=== PATIENT | female | born 1950 | race African-American/Black ===

== ENCOUNTER 2018-05-18 20:34 | Emergency (ER) | payer MEDICARE ==
[~2018-05-18] VITALS: Ht 157.5 cm; Wt 91.7 kg
--- OUTSIDE RECORDS SUMMARY | 2018-05-18 20:38 | XMS REPORT | Continuity of Care Document ---
Author Author [facility] Interface Address Unknown Phone Unavailable Problems Problem Status Onset Date Classification Date Reported Comments Source Pain in left lower leg 07/07/2017 10/06/2017 [facility] M25.472 Active 06/30/2017 [facility] CHEST PAIN Active 03/25/2017 [facility] BREAST CANCER Active 09/26/2016 [facility] Discharge Diagnosis: Fall on same level, unspecified, initial encounter 06/27/2016 06/30/2016 [facility] HEAD INJURY W/LOC Active 06/26/2016 [facility] M79.62=PAIN IN LEFT LOWER LEG Active 09/13/2015 [facility] DX: R92.8=OTHER ABNORMAL AND INCONCLUSIV Active 08/12/2015 [facility] V65.3, Z71.3 Active 08/06/2015 [facility] Discharge Diagnosis: Chest pain 05/12/2014 05/14/2014 [facility] RIGHT BREAST CANCER Active 03/29/2000 [facility] PVC Active Problem 07/01/2017 [facility] Melasma Active Problem 07/01/2017 [facility] Cervical nerve root impingement Active Problem 07/01/2017 [facility] History of DVT Active Problem 12/19/2016 [facility] History of breast cancer Active Problem 07/01/2017 [facility] Reactive depression Active Problem 07/01/2017 [facility] Lumbago with sciatica, right side Active Problem 07/01/2017 [facility] Colon polyp Active Problem 07/01/2017 [facility] BMI 37.0-37.9, adult Active Problem 07/01/2017 [facility] Lumbago with sciatica, left side Active Problem 07/01/2017 [facility] Hx of laparoscopic gastric banding Active Problem 07/01/2017 [facility] Vitamin D deficiency Active Problem 07/01/2017 [facility] Cervical nerve root impingement Active Problem 12/19/2016 [facility] Esophagitis Active Problem 07/01/2017 [facility] HTN Active Problem 07/01/2017 [facility] Breast pain, right Active Diagnosis 06/30/2016 [facility] HTN Active Problem 04/29/2014 [facility] Vitamin d deficiency Active Problem 08/02/2015 [facility] Skin tag Active Diagnosis 04/21/2014 [facility] Left shoulder pain Active Diagnosis 04/21/2014 [facility] Discoloration of skin of face Active Diagnosis 04/21/2014 [facility] HTN , benign Active Problem 08/02/2015 [facility] Hypothyroid Active Problem 03/18/2016 [facility] Left ankle pain Active Diagnosis 09/28/2013 [facility] Left ankle swelling Active Diagnosis 09/28/2013 [facility] Stye Active Diagnosis 09/28/2013 [facility] Anxiety Active Problem 07/01/2017 [facility] Left leg pain Active Diagnosis 07/01/2017 [facility] Varicose veins of both lower extremities Active Diagnosis 07/01/2017 [facility] Left ankle swelling Active Diagnosis 07/01/2017 [facility] Dark urine Active Diagnosis 06/17/2015 [facility] Encounter for screening mammogram for malignant neoplasm of breast Active Diagnosis 06/17/2015 [facility] Special screening for malignant neoplasms, colon Active Diagnosis 06/17/2015 [facility] Shoulder pain, left Active Diagnosis 04/29/2014 [facility] Chest wall discomfort Active Diagnosis 04/29/2014 [facility] Neck pain on left side Active Diagnosis 04/29/2014 [facility] Discoloration of skin Active Diagnosis 04/29/2014 [facility] Breast cancer Active Problem 03/18/2016 [facility] Breast mass Active Diagnosis 09/07/2015 [facility] Abnormal finding on mammography Active Diagnosis 08/16/2015 [facility] Bacteria in urine Active Diagnosis 08/16/2015 [facility] Menopause Active Diagnosis 05/05/2016 [facility] URI with cough and congestion Active Diagnosis 05/05/2016 [facility] Lumbar canal stenosis Active Diagnosis 05/21/2016 [facility] Screening for malignant neoplasm of the rectum Active Diagnosis 05/21/2016 [facility] Routine general medical examination at a health care facility Active Diagnosis 05/21/2016 [facility] Pain of left calf Active Diagnosis 09/17/2015 [facility] Hypertension Resolved Problem 10/06/2017 [facility] Breast cancer Resolved Problem 10/06/2017 [facility] Obesity Active Problem 10/06/2017 [facility] DIETARY COUNSELING AND SURVEILLANCE Active [facility] OTH ABN AND INCONCLUSIVE FINDINGS ON DX Active [facility] MALIG NEOPLM OF LOWER-INNER QUADRANT OF Active [facility] EFFUSION, LEFT ANKLE Active [facility] PAIN IN LEFT LOWER LEG Active [facility] Medications Medication Details Route Status Patient Instructions Ordering Provider Order Date Source Ibuprofen 1 tablet with food or milk as needed Orally Active 800 MG Orally Q8 PRN Hu 06/30/2017 [facility] Saline Flush 0.9% 10 mL, Route: IVP, Drug Form: INJ, Dosing Weight 97.273, kg, PRN, PRN Line Flush, Start date: 03/25/17 16:35:00 LIGHT BULB TESTER, Duration: 30 day, Stop date: 04/24/17 16:34:00 CSTNotes: (Same as: BD Posiflush) No Longer Active 03/25/2017 [facility] Motrin 600 mg oral tablet 600 mg=1 tab, PO, Q6H, PRN Pain, take with food, # 30 tab, 0 Refill(s) Active 06/27/2016 [facility] Acetaminophen 325 MG / Hydrocodone Bitartrate 5 MG Oral Tablet [[place] 5/325] 1 tab, Route: PO, Drug Form: TAB, Dosing Weight 90.909, kg, ONCE, STAT, Start date: 06/27/16 0:55:00 CDT, Stop date: 06/27/16 0:55:00 CDTNotes: (Same as: [place] 325/5) Do not exceed 4gm/day of acetaminophen. Inactive 06/27/2016 [facility] Saline Flush 0.9% 10 mL, Route: IVP, Drug Form: INJ, Dosing Weight 90.909, kg, PRN, PRN Line Flush, Start date: 06/26/16 21:30:00 CDT, Duration: 30 day, Stop date: 07/26/16 21:29:00 CDTNotes: (Same as: BD Posiflush) No Longer Active 06/27/2016 [facility] Escitalopram Oxalate 1 tablet Orally Active 10 MG Orally Once a day [place] 06/25/2016 [facility] Lidocaine 1 application to lower back Externally Active 5 % Externally up to Three times a day [place] 05/13/2016 [facility] Lidocaine 1 application to lower back Externally Active 5 % Externally up to Three times a day [place] 05/13/2016 [facility] Ceftin 1 tablet Orally Active 250 MG Orally Twice a day [place] 04/30/2016 [facility] Tessalon Perles 1 capsule as needed Orally Active 100 MG Orally Three times a day [place] 04/30/2016 [facility] Cipro 1 tablet Orally Active 250 MG Orally every 12 hrs [place] 06/07/2015 [facility] Synthroid 1 tablet Orally No Longer Active 25 MCG Orally Once a day (MUST SEE DOCTOR BEFORE NEXT REFILL) [place] 02/05/2015 [facility] Synthroid 1 tablet Orally Active 25 MCG Orally Once a day [place] 05/28/2014 [facility] Dilaudid 1 mg, Route: IVP, ONCE, Dosing Weight 92.727, kg, Priority: STAT, Start date: 05/12/14 22:09:00, Stop date: 05/12/14 22:09:00 Inactive 05/13/2014 [facility] Ondansetron 4 mg, Route: IVP, Drug form: INJ, ONCE, Dosing Weight 92.727, kg, Priority: STAT, Start date: 05/12/14 19:36:00, Stop date: 05/12/14 19:36:00 Inactive 05/13/2014 [facility] Morphine 4 mg, Route: IVP, ONCE, Dosing Weight 92.727, kg, Priority: STAT, Start date: 05/12/14 19:36:00, Stop date: 05/12/14 19:36:00 Inactive 05/13/2014 [facility] Codeine Phosphate 2 MG/ML / Guaifenesin 40 MG/ML Oral Solution 10 ml, PO, Q4H, for cough and congestion, # 420 mL, 0 Refill(s) Active 05/13/2014 [facility] aspirin 324 mg, Route: PO, ONCE, Dosing Weight 92.727, kg, Priority: STAT, Start date: 05/12/14 19:04:00, Stop date: 05/12/14 19:04:00 Inactive 05/13/2014 [facility] Sodium Chloride 0.154 MEQ/ML Injectable Solution 1,000 mL, Infuse Over: 1 hr, Route: IV, ONCE, Priority: STAT, Dosing Weight 92.727 kg, Start date: 05/12/14 19:04:00, Duration: 1 doses or times, Stop date: 05/12/14 19:04:00 Inactive 05/13/2014 [facility] Saline Flush 0.9% 10 mL, Route: IVP, Drug Form: INJ, Dosing Weight 92.727, kg, PRN, PRN Line Flush, Start date: 05/12/14 19:04:00, Duration: 30 day, Stop date: 06/11/14 20:03:00Notes: (Same as: BD Posiflush) No Longer Active 05/13/2014 [facility] Tri-Anai 1 application to affected area at bedtime Externally Active 0.01-4-0.05 % Externally Once a day Hu 04/27/2014 [facility] Tri-Anai 1 application to affected area at bedtime Externally Active 0.01-4-0.05 % Externally Once a day [place] 04/27/2014 [facility] Medrol (Duran) as directed Orally Active 4 mg Orally daily [place] 04/27/2014 [facility] Amoxicillin 1 capsule Orally Active 500 mg Orally twice a day (bid) [place] 04/21/2014 [facility] Naproxen 1 tablet as needed Orally Active 500 mg Orally every 12 hrs [place] 04/20/2014 [facility] Flexeril 1 tablet Orally Active 5 MG Orally Three times a day as needed for pain [place] 04/20/2014 [facility] Tramadol HCl 1 tablet as needed Orally Active 50 mg Orally every 6 hrs prn pain [place] 09/22/2013 [facility] Erythromycin apply 1cm ribbon to affected lid Ophthalmic Active 5 MG/GM Ophthalmic 4 times a day [place] 09/22/2013 [facility] Naproxen 1 tablet as needed Orally Active 500 mg Orally every 12 hrs [place] 09/22/2013 [facility] Diovan 1 tablet Orally Active 160 MG Orally Once a day [place] 05/22/2013 [facility] Tramadol HCl 1 tablet on the tongue and allow to dissolve as needed Orally Active 50 mg Orally every 6 hrs if needed [place] 05/22/2013 [facility] Diovan 1/2 half tablet Orally Active 160 MG Orally Once a day (MUST HAVE LABS DONE BEFORE NEXT REFILL) [facility] Tizanidine HCl TAKE 1 TABLET BY MOUTH AT BEDTIME NEEDED NA Active 4 MG [place] [facility] Aspir-81 1 tablet Orally Active 81 MG Orally Once a day [facility] Arimidex 1 tablet Orally Active 1 MG Orally Once a day [place] [facility] Tramadol HCl 1 tablet as needed Orally Active 50 MG Orally every 6 hrs [facility] Metoprolol Succinate not defined Orally Active 50 MG Orally [facility] Lansoprazole 1 capsule Orally Active 30 mg Orally Once a day [facility] Lansoprazole 1 capsule Orally Active 30 mg Orally Once a day [facility] Aspir-81 1 tablet Orally Active 81 MG Orally Once a day [facility] Diovan TAKE 1 TABLET BY MOUTH DAILY NA Active 160 MG Hu [facility] Escitalopram Oxalate 1 tablet Orally Active 10 mg Orally Once a day [facility] Arimidex 1 tablet Orally Active 1 MG Orally Once a day [facility] Naproxen TAKE 1 TABLET BY MOUTH EVERY 12 HOURS NEEDED NA Active 500 MG [place] [facility] Metoprolol Succinate Unknown Orally Active 50 MG Orally [facility] Diovan 1/2 half tablet Orally Active 160 MG Orally Once a day [facility] Allergies, Adverse Reactions, Alerts Substance Category Reaction Severity Reaction type Status Date Reported Comments Source N.K.D.A. Adverse Reaction Info Not Available Adverse Reaction Active 06/30/2017 [facility] Immunizations Immunization Date Given Site Status Last Updated Comments Source Results Order Name Results Value Reference Range Date Interpretation Comments Source Ext Lower Venous Doppler Unilat US Ext Lower Venous Doppler Unilat US Ext Lower Venous Doppler Unilat US 67 years /o Female Clinical Indication: Left leg numbness, heaviness and swelling, sudden onset Comparison: 09/13/2015 TECHNIQUE: Sonographic evaluation of the left lower extremity veins was performed using high resolution B-mode imaging, along with pulse and color Doppler imaging. FINDINGS: Left lower extremity: The common femoral vein, superficial femoral vein, popliteal vein and visualized posterior tibial/calf veins are patent. There is no echogenic debris to suggest deep venous thrombosis. The saphenous vein junction is within normal limits. IMPRESSION: No evidence for left lower extremity DVT. SL: [id number] 06/30/2017 - - Read by: Heriberto Hastings MD Dictated Date/time: 06/30/17 15:54 Electronically Signed by: Heriberto Hastings MD 06/30/17 15:58 FINAL REPORT [facility] CARDIAC ENZYMES CK MB Index 0.8 0.0 - 2.5 03/26/2017 [facility] CARDIAC ENZYMES CK MB 1.1 ng/mL 0.5 - 3.6 03/26/2017 [facility] CARDIAC ENZYMES Troponin-I null 0.00 - 0.40 03/26/2017 [facility] CARDIAC ENZYMES Total CK 132 unit/L 12 - 191 03/26/2017 [facility] CHEM PANEL Magnesium Lvl 2.1 mg/dL 1.8 - 2.4 03/26/2017 [facility] CHEM PANEL eGFR 77 mL/min/1.73m2 03/26/2017 Result Comment: The eGFR is calculated using the CKD-EPI formula. In most young, healthy individuals the eGFR will be >90 mL/min/1.73m2. The eGFR declines with age. An eGFR of 60-89 may be normal in some populations, particularly the elderly, for whom the CKD-EPI formula has not been extensively validated. Use of the eGFR is not recommended in the following populations: Individuals with unstable creatinine concentrations, including patients and those with serious co-morbid conditions. Patients with extremes in muscle mass or diet. The data above are obtained from the National Kidney Disease Education Program (NKDEP) which additionally recommends that when the eGFR is used in patients with extremes of body mass index for purposes of drug dosing, the eGFR should be multiplied by the estimated BMI. [facility] CHEM PANEL Calcium Lvl 8.6 mg/dL 8.5 - 10.5 03/26/2017 [facility]M PANEL CO2 29 meq/L 24 - 32 03/26/2017 [facility] PANEL Potassium Lvl 4.4 meq/L 3.5 - 5.1 03/26/2017 [facility] PANEL Chloride Lvl 108 meq/L 95 - 109 03/26/2017 [facility] PANEL Creatinine Lvl 0.90 mg/dL 0.50 - 1.40 03/26/2017 [facility] PANEL Sodium Lvl 141 meq/L 135 - 145 03/26/2017 [facility] PAN[facility] Glucose Lvl 81 mg/dL 70 - 99 03/26/2017 [facility] PANEL BUN 13 mg/dL 7 - 22 03/26/2017 [facility] PAN[facility] A/G Ratio 0.8 0.7 - 1.6 03/26/2017 [facility] PANEL Bili Total 0.3 mg/dL 0.2 - 1.3 03/26/2017 [facility]M PANEL AGAP 8.4 meq/L 10.0 - 20.0 03/26/2017 [facility] PANEL Alk Phos 101 unit/L 39 - 136 03/26/2017 [facility]M PANEL ALT 22 unit/L 0 - 65 03/26/2017 [facility] PANEL AST 15 unit/L 0 - 37 03/26/2017 [facility] PAN[facility] Total Protein 7.9 g/dL 6.4 - 8.4 03/26/2017 [facility]M PANEL Albumin Lvl 3.5 g/dL 3.5 - 5.0 03/26/2017 [facility] PANEL B/C Ratio 14 6 - 25 03/26/2017 [facility] PAN[facility] Globulin 4.4 g/dL 2.7 - 4.2 03/26/2017 [facility] HEMATOLOGY Lymphocytes 35.4 % 20.0 - 40.0 03/26/2017 [facility] HEMATOLOGY Segs 47.6 % 45.0 - 75.0 03/26/2017 [facility] HEMATOLOGY Monocytes 8.6 % 2.0 - 12.0 03/26/2017 [facility] HEMATOLOGY Eosinophils # 0.3 K/CMM 0.0 - 0.5 03/26/2017 [facility] HEMATOLOGY Segs-Bands # 2.0 K/CMM 1.5 - 8.1 03/26/[address] [facility] Basophils 0.8 % 0.0 - 1.0 03/26/[address] [facility] Eosinophils 7.6 % 0.0 - 4.0 03/26/[address] [facility] Monocytes # 0.4 K/CMM 0.0 - 0.8 03/26/[address] [facility] Lymphocytes # 1.5 K/CMM 1.0 - 5.5 03/26/[address] [facility] Hct 37.7 % 36.0 - 48.0 03/26/[address] [facility] WBC 4.2 K/CMM 3.7 - 10.4 03/26/[address] [facility] Hgb 12.4 g/dL 12.0 - 16.0 03/26/[address] [facility] RBC 4.29 M/CMM 4.20 - 5.40 03/26/[address] [facility] MPV 10.1 fL 7.4 - 10.4 03/26/[address] [facility] MCV 88.0 fL 80.0 - 98.0 03/26/[address] [facility] MCH 28.8 pg 27.0 - 31.0 03/26/[address] [facility] Platelet 169 K/CMM 133 - 450 03/26/[address] [facility] RDW 13.8 % 11.5 - 14.5 03/26/[address] [facility] MCHC 32.8 g/dL 32.0 - 36.0 03/26/2017 [facility] Chest 2 views DX Chest 2 views DX Clinical Indication: - chest pain, cardiac eval Comparison: 06/26/2016 FINDINGS: PA and lateral views the chest are submitted for interpretation. The lungs are clear and there are no effusions. There is no visible pneumothorax. The cardiomediastinal contours are within normal limits. There are no clinically significant osseous abnormalities noted. IMPRESSION: 1. No radiographic evidence of acute cardiopulmonary process. SL: [id number] 03/25/2017 - - Read by: Tino Vieira MD Dictated Date/time: 03/25/17 17:06 Electronically Signed by: Tino Vieira MD 03/25/17 17:07 FINAL REPORT [facility] Pelvis AP DX Pelvis AP DX Study: Frontal view of pelvis History: Fall Comments: Normal bone mineralization. Sacrum evaluation limited due to overlying bowel gas. No acute fracture or dislocation in the remaining pelvis. Calcified uterine fibroids. IMPRESSION: Sacrum evaluation limited due to overlying bowel gas. No acute fracture or dislocation in the remaining pelvis. 06/27/2016 - - Read by: Kathrine Alvarez MD Dictated Date/time: 06/27/16 01:47 Electronically Signed by: Kathrine Alvarez MD 06/27/16 01:48 FINAL REPORT [facility] Spine lumbar series DX Spine lumbar series DX Study: 5 views of lumbar spine History: Fall Comments: Normal bone mineralization. Normal curvature of the spine. Oblique views are suboptimal, however no bony degenerative changes to cause neural foraminal narrowing. Intervertebral disc space narrowing at L3-L4. Impression: No acute fracture or subluxation 06/27/2016 - - Read by: Kathrine Alvarez MD Dictated Date/time: 06/27/16 01:45 Electronically Signed by: Kathrine Alvarez MD 06/27/16 01:46 FINAL REPORT [facility] Brain wo contrast CT Brain wo contrast CT I have reviewed this examination and concur with the interpretation. Patient Name: JAMES WALTERS : 1950; Age: 66 years Female MR: [id number] Study: Brain wo contrast CT 06/26/2016 9:30 PM CDT CLINICAL INDICATION: Syncope-Pt lost balance and fell backward, hit head on floor. Hit back of head, stifness to neck, denies other pain. Possible LOC - head injury with possible LOC, ct dlp: 981.84 mGycm. ADDITIONAL HISTORY: None COMPARISON: CT brain on 07/23/2009 TECHNIQUE: Multidetector CT images were obtained from the foramen magnum to the vertex without the use of intravenous contrast. Coronal and sagittal reconstructions were obtained. DLP: 981.4 mGy-cm FINDINGS: BRAIN PARENCHYMA: Normal appearance of the joaquin-white matter differentiation, sulci, and gyri. No evidence of mass effect or midline shift. No extra-axial fluid collections, intraventricular or intraparenchymal hemorrhage. The sella and pineal regions are normal. The skull base, cerebellum and brainstem are normal. VENTRICLES: Normal in size and configuration. No hydrocephalus. The basilar cisterns are normal. ORBITS, MASTOIDS AND PARANASAL SINUSES: The visualized orbits are normal. The paranasal sinuses are normal. The mastoid air cells are clear. SKULL: No significant osseous abnormalities. ADDITIONAL FINDINGS: Small parietal scalp hematoma. IMPRESSION: No acute intracranial abnormalities. SL: [id number] 06/27/2016 - - Read by: David Zarate DO Dictated Date/time: 06/27/16 01:48 Electronically Signed by: David Zarate DO 06/27/16 01:48 FINAL REPORT - - Read by: Dinora Livingston MD Dictated Date/time: 06/27/16 00:40 Electronically Signed by: Dinora Livingston MD 06/27/16 00:44 FINAL REPORT [facility] Chest 1view DX Chest 1view DX Study: Frontal chest x-ray compared to 05/12/2014 History: Syncope. Comments: The trachea is midline. The cardiomediastinal silhouette is normal in size. No pneumonia. No pleural effusions or pneumothorax. Impression: No acute cardiopulmonary disease. 06/26/2016 - - Read by: Kathrine Alvarez MD Dictated Date/time: 06/26/16 22:51 Electronically Signed by: Kathrine Alvarez MD 06/26/16 23:33 FINAL REPORT [facility] Spine cervical 2 or 3 view DX Spine cervical 2 or 3 view DX Study: 3 views of cervical spine History: Fall Comments: Normal bone mineralization. Normal curvature of the spine. No acute fracture or subluxation. Anterior disc osteophytes and intervertebral disc space narrowing at C5 C6 C7. C1-C2 relationship is within normal limits. Impression: No acute fracture or subluxation 06/26/2016 - - Read by: Kathrine Alvarez MD Dictated Date/time: 06/26/16 22:51 Electronically Signed by: Kathrine Alvarez MD 06/26/16 22:54 FINAL REPORT [facility] Ext Lower Venous Doppler Unilat US Ext Lower Venous Doppler Unilat US Study: Left lower extremity Doppler venous ultrasound Clinical Indication: M79.662 Pain in left lower leg Comparison: None Findings: Multiple grayscale sonographic and color Doppler images of the left lower extremity were acquired. The left common femoral, superficial femoral, popliteal, and visualized posterior tibial/calf veins show normal compressibility, flow, and augmentation without filling defect. IMPRESSION: No evidence of deep venous thrombosis of the left lower extremity. SL: [id number] 09/13/2015 - - Read by: Rylan Barreto MD Dictated Date/time: 09/13/15 17:32 Electronically Signed by: Rylan Barreto MD 09/13/15 17:32 FINAL REPORT [facility] Barium Swallow w Esophagus Function DX Barium Swallow w Esophagus Function DX EXAM: Esophagram HISTORY: Gastric lap band, dysphagia, nausea and vomiting COMPARISON: None TECHNIQUE: Thin barium was utilized for recumbent prone oblique and LPO images. Thick barium was utilized for upright imaging of the esophagus and pharynx. Hamburger meat mixed with barium was given to evaluate motility with solids. Video was obtained. No fluoroscopy time given. FINDINGS: The esophagus demonstrates moderate distal esophageal reflux of liquid barium with patient in prone and supine positions; tertiary esophageal contractions with decreased clearance of the liquid is also seen with patient supine. Esophageal peristalsis with liquid is significantly improved, essentially within normal limits, with patient upright. Esophageal peristalsis is within normal limits with hamburger. A gastric lap band is present appearing in satisfactory position with normal diameter of the stoma. There is normal opacification of the stomach. A small type I hiatal hernia is seen with patient in prone position. The pharynx appears unremarkable. IMPRESSION: Gastric lap band with moderate distal esophageal reflux and tertiary esophageal contractions with patient in recumbent position; esophageal peristalsis is essentially within normal limits with patient upright. Small type I hiatal hernia. 13 08/09/2015 - - Read by: Alexy Coulter MD Dictated Date/time: 08/09/15 16:08 Electronically Signed by: Alexy Coulter MD 08/09/15 16:15 FINAL REPORT [facility] CARDIAC ENZYMES CK MB Index null 0.0 - 2.5 05/13/2014 [facility] CARDIAC ENZYMES CK MB null 0.5 - 3.6 05/13/2014 [facility] CARDIAC ENZYMES Troponin-I null 0.00 - 0.40 05/13/2014 [facility] CARDIAC ENZYMES Total CK 90 unit/L 12 - 191 05/13/2014 [facility] CARDIAC ENZYMES BNP 23 pg/mL <=100 pg/mL 05/13/2014 3Interpretive Data: Elevated results are in line with increasing severity of congestive heart failure. Minor elevations between 100 and 300 may be seen with Myocardial Ischemia, Sodium retaining drugs, and compensated/treated heart failure. [facility] CHEM PANEL A/G Ratio 0.8 0.7 - 1.6 05/13/2014 [facility] CHEM PANEL Glucose Lvl 92 mg/dL 70 - 99 05/13/2014 2Interpretive Data: Adult reference range values reflect the clinical guidelines of the [place] [employer]. [facility] CHEM PANEL Bili Total 0.3 mg/dL 0.2 - 1.3 05/13/2014 [facility] CHEM PANEL AGAP 10.9 meq/L 10.0 - 20.0 05/13/2014 [facility] CHEM PANEL AST 18 unit/L 0 - 37 05/13/2014 [facility] CHEM PANEL Alk Phos 91 unit/L 39 - 136 05/13/2014 [facility] CHEM PANEL Globulin 3.9 g/dL 2.0 - 4.0 05/13/2014 [facility] CHEM PANEL B/C Ratio 12 6 - 25 05/13/2014 [facility] CHEM PANEL Total Protein 7.0 g/dL 6.4 - 8.4 05/13/2014 [facility] CHEM PANEL BUN 13 mg/dL 7 - 22 05/13/2014 [facility] CHEM PANEL Albumin Lvl 3.1 g/dL 3.5 - 5.0 05/13/2014 [facility] CHEM PANEL ALT 18 unit/L 0 - 65 05/13/2014 [facility] CHEM PANEL Creatinine Lvl 1.1 mg/dL 0.5 - 1.4 05/13/2014 [facility] CHEM PANEL CO2 27 meq/L 24 - 32 05/13/2014 [facility] CHEM PANEL Sodium Lvl 139 meq/L 135 - 145 05/13/2014 [facility] CHEM PANEL Potassium Lvl 3.9 meq/L 3.5 - 5.1 05/13/2014 [facility] CHEM PANEL Chloride Lvl 105 meq/L 95 - 109 05/13/2014 [facility] CHEM PANEL Calcium Lvl 8.3 mg/dL 8.5 - 10.5 05/13/2014 [facility] CHEM PANEL eGFR 62 mL/min/1.73m2 05/13/2014 1Result Comment: The eGFR is calculated using the CKD-EPI formula. In most young, healthy individuals the eGFR will be >90 mL/min/1.73m2. The eGFR declines with age. An eGFR of 60-89 may be normal in some populations, particularly the elderly, for whom the CKD-EPI formula has not been extensively validated. Use of the eGFR is not recommended in the following populations: Individuals with unstable creatinine concentrations, including patients and those with serious co-morbid conditions. Patients with extremes in muscle mass or diet. The data above are obtained from the National Kidney Disease Education Program (NKDEP) which additionally recommends that when the eGFR is used in patients with extremes of body mass index for purposes of drug dosing, the eGFR should be multiplied by the estimated BMI. [facility] HEMATOLOGY Basophils 0.7 % 0.0 - 1.0 05/13/[address] [facility] Lymphocytes # 2.8 K/CMM 1.0 - 5.5 05/13/[address] [facility] Segs-Bands # 3.5 K/CMM 1.5 - 8.1 05/13/2014 [facility] HEMATOLOGY Monocytes # 0.7 K/CMM 0.0 - 0.8 05/13/[address] [facility] Basophils # 0.1 K/CMM 0.0 - 0.2 05/13/[address] [facility] Eosinophils # 0.2 K/CMM 0.0 - 0.5 05/13/[address] [facility] Segs 48.7 % 45.0 - 75.0 05/13/[address] [facility] Monocytes 9.0 % 2.0 - 12.0 05/13/[address] [facility] Eosinophils 3.3 % 0.0 - 4.0 05/13/[address] [facility] Lymphocytes 38.3 % 20.0 - 40.0 05/13/[address] [facility] INR 0.99 0.85 - 1.17 05/13/2014 4Interpretive Data: RECOMMENDED RANGES FOR PROTIME INR: 2.0-3.0 for most medical and surgical thromboembolic states. 2.5-3.5 for artificial heart valves and recurrent embolism. INR SHOULD BE USED ONLY FOR PATIENTS ON STABLE ANTICOAGULANT THERAPY. [facility] PT 13.1 s 12.0 - 14.7 05/13/[address] [facility] PTT 28.7 s 22.9 - 35.8 05/13/2014 5Interpretive Data: Heparin Therapeutic Range: 57 - [address] [facility] Hgb 12.4 g/dL 12.0 - 16.0 05/13/[address] [facility] RBC 4.42 M/CMM 4.20 - 5.40 05/13/[address] [facility] WBC 7.2 K/CMM 3.7 - 10.4 05/13/2014 [facility] HEMATOLOGY MPV 10.7 fL 7.4 - 10.4 05/13/2014 [facility] HEMATOLOGY Hct 38.1 % 36.0 - 48.0 05/13/2014 [facility] HEMATOLOGY MCV 86.1 fL 80.0 - 98.0 05/13/2014 [facility] HEMATOLOGY MCH 28.1 pg 27.0 - 31.0 05/13/2014 [facility] HEMATOLOGY RDW 13.9 % 11.5 - 14.5 05/13/2014 [facility] HEMATOLOGY Platelet 166 K/CMM 133 - 450 05/13/2014 [facility] HEMATOLOGY MCHC 32.6 g/dL 32.0 - 36.0 05/13/2014 [facility] Vital Signs Vital Sign Value Date Comments Source Weight 213 06/30/2017 [facility] Height 63 06/30/2017 [facility] Heart Rate 72 06/30/2017 [facility] Diastolic (mm Hg) 70 06/30/2017 [facility] Systolic (mm Hg) 110 06/30/2017 [facility] Systolic (mm Hg) 137 03/26/2017 [facility] Diastolic (mm Hg) 70 03/26/2017 [facility] Heart Rate 75 03/26/2017 [facility] Respitory Rate 18 03/26/2017 [facility] Temperature Oral (F) 98.5 F 03/26/2017 [facility] Height 157.48 cm 03/25/2017 [facility] Respitory Rate 18 03/25/2017 [facility] Heart Rate 60 03/25/2017 [facility] Weight 97.273 03/25/2017 [facility] BMI Calculated 39.22 03/25/2017 [facility] Temperature Oral (F) 97.8 F 03/25/2017 [facility] Systolic (mm Hg) 159 03/25/2017 [facility] Diastolic (mm Hg) 87 03/25/2017 [facility] Respitory Rate 17 06/27/2016 [facility] Heart Rate 81 06/27/2016 [facility] Temperature Oral (F) 98.3 F 06/27/2016 [facility] Systolic (mm Hg) 112 06/27/2016 [facility] Diastolic (mm Hg) 49 06/27/2016 [facility] Respitory Rate 19 06/27/2016 [facility] Heart Rate 88 06/27/2016 [facility] Systolic (mm Hg) 129 06/27/2016 [facility] Diastolic (mm Hg) 78 06/27/2016 [facility] Weight 90.909 06/27/2016 [facility] Temperature Oral (F) 98.2 F 06/27/2016 [facility] Respitory Rate 18 06/27/2016 [facility] Heart Rate 92 06/27/2016 [facility] Systolic (mm Hg) 135 06/27/2016 [facility] Diastolic (mm Hg) 85 06/27/2016 [facility] Weight 212 06/25/2016 [facility] Height 63 06/25/2016 [facility] Heart Rate 83 06/25/2016 [facility] Diastolic (mm Hg) 68 06/25/2016 [facility] Systolic (mm Hg) 100 06/25/2016 [facility] Weight 215 05/13/2016 [facility] Height 63 05/13/2016 [facility] Heart Rate 60 05/13/2016 [facility] Diastolic (mm Hg) 72 05/13/2016 [facility] Systolic (mm Hg) 124 05/13/2016 [facility] Weight 213 04/30/2016 [facility] Height 63 04/30/2016 [facility] Diastolic (mm Hg) 80 04/30/2016 [facility] Systolic (mm Hg) 124 04/30/2016 [facility] Weight 203 09/13/2015 [facility] Height 63 09/13/2015 [facility] Heart Rate 82 09/13/2015 [facility] Diastolic (mm Hg) 70 09/13/2015 [facility] Systolic (mm Hg) 108 09/13/2015 [facility] Weight 207 08/06/2015 [facility] Height 63 08/06/2015 [facility] Diastolic (mm Hg) 74 08/06/2015 [facility] Systolic (mm Hg) 118 08/06/2015 [facility] Weight 207 06/07/2015 [facility] Height 63 06/07/2015 [facility] Diastolic (mm Hg) 65 05/13/2014 [facility] Systolic (mm Hg) 112 05/13/2014 [facility] Respitory Rate 17 05/13/2014 [facility] Temperature Oral (F) 98.6 F 05/13/2014 [facility] Heart Rate 71 05/13/2014 [facility] Diastolic (mm Hg) 65 05/13/2014 [facility] Systolic (mm Hg) 111 05/13/2014 [facility] Respitory Rate 12 05/13/2014 [facility] Heart Rate 58 05/13/2014 [facility] Temperature Oral (F) 98.5 F 05/13/2014 [facility] Respitory Rate 16 05/13/2014 [facility] Heart Rate 72 05/13/2014 [facility] Temperature Oral (F) 98.6 F 05/13/2014 [facility] Systolic (mm Hg) 122 05/13/2014 [facility] Diastolic (mm Hg) 61 05/13/2014 [facility] Weight 92.727 05/13/2014 [facility] BMI Calculated 37.39 05/13/2014 [facility] Height 157.48 cm 05/13/2014 [facility] Weight 204 04/27/2014 [facility] Height 63 04/27/2014 [facility] Temperature Oral (F) 97.8 F 04/27/2014 [facility] Heart Rate 81 04/27/2014 [facility] Diastolic (mm Hg) 80 04/27/2014 [facility] Systolic (mm Hg) 114 04/27/2014 [facility] Weight 204 04/20/2014 [facility] Height 63 04/20/2014 [facility] Heart Rate 55 04/20/2014 [facility] Diastolic (mm Hg) 82 04/20/2014 [facility] Systolic (mm Hg) 134 04/20/2014 [facility] Weight 204 09/22/2013 [facility] Height 63 09/22/2013 [facility] Heart Rate 64 09/22/2013 [facility] Diastolic (mm Hg) 88 09/22/2013 [facility] Systolic (mm Hg) 130 09/22/2013 [facility] Encounters Location Location Details Encounter Type Encounter Number Reason For Visit Attending Provider ADM Date DC Date Status Source [facility] ankle pain/eye [id number] 09/22/2013 09/22/2013 [facility] ankle pain/eye [id number] 09/22/2013 09/22/2013 [facility] ankle pain/eye [id number] 09/22/2013 09/22/2013 [facility] ankle pain/eye [id number] 09/22/2013 09/22/2013 [facility] ankle pain/eye [id number] 09/22/2013 09/22/2013 [facility] ankle pain/eye [id number] 09/22/2013 09/22/2013 [facility] ankle pain/eye [id number] 09/22/2013 09/22/2013 [facility] ankle pain/eye [id number] 09/22/2013 09/22/2013 [facility] ankle pain/eye [id number] 09/22/2013 09/22/2013 [facility] ankle pain/eye [id number] 09/22/2013 09/22/2013 [facility] ankle pain/eye [id number] 09/22/2013 09/22/2013 [facility] ankle pain/eye [id number] 09/22/2013 09/22/2013 [facility] ankle pain/eye [id number] 09/22/2013 09/22/2013 [facility] ankle pain/eye [id number] 09/22/2013 09/22/2013 [facility] ankle pain/eye [id number] 09/22/2013 09/22/2013 [facility] Unknown [id number] 02/28/2014 02/28/2014 [facility] Unknown [id number] 02/28/2014 02/28/2014 [facility] Unknown [id number] 02/28/2014 02/28/2014 [facility] Unknown [id number] 02/28/2014 02/28/2014 [facility] Unknown [id number] 02/28/2014 02/28/2014 [facility] Unknown [id number] 02/28/2014 02/28/2014 [facility] Unknown [id number] 02/28/2014 02/28/2014 [facility] Unknown [id number] 03/01/2014 03/01/2014 [facility] Unknown [id number] 03/01/2014 03/01/2014 [facility] Unknown [id number] 03/01/2014 03/01/2014 [facility] Unknown [id number] 03/01/2014 03/01/2014 [facility] Unknown [id number] 03/01/2014 03/01/2014 [facility] Unknown [id number] 03/01/2014 03/01/2014 [facility] Unknown [id number] 03/01/2014 03/01/2014 [facility] sick [id number] 04/20/2014 04/20/2014 [facility] sick [id number] 04/20/2014 04/20/2014 [facility] sick [id number] 04/20/2014 04/20/2014 [facility] sick [id number] 04/20/2014 04/20/2014 [facility] sick [id number] 04/20/2014 04/20/2014 [facility] sick [id number] 04/20/2014 04/20/2014 [facility] sick [id number] 04/20/2014 04/20/2014 [facility] sick [id number] 04/20/2014 04/20/2014 [facility] sick [id number] 04/20/2014 04/20/2014 [facility] sick [id number] 04/20/2014 04/20/2014 [facility] sick [id number] 04/20/2014 04/20/2014 [facility] sick [id number] 04/20/2014 04/20/2014 [facility] sick [id number] 04/20/2014 04/20/2014 [facility] [id number] 04/21/2014 04/21/2014 [facility] Unknown [id number] 04/21/2014 04/21/2014 [facility] Unknown [id number] 04/21/2014 04/21/2014 [facility] Unknown [id number] 04/21/2014 04/21/2014 [facility] Unknown [id number] 04/21/2014 04/21/2014 [facility] Unknown [id number] 04/21/2014 04/21/2014 [facility] Unknown [id number] 04/21/2014 04/21/2014 [facility] Unknown [id number] 04/21/2014 04/21/2014 [facility] Unknown [id number] 04/21/2014 04/21/2014 [facility] Unknown [id number] 04/21/2014 04/21/2014 [facility] Unknown [id number] 04/21/2014 04/21/2014 [facility] Unknown [id number] 04/21/2014 04/21/2014 [facility] Unknown [id number] 04/21/2014 04/21/2014 [facility] 1 WEEK FOLLOW UP [id number] 04/27/2014 04/27/2014 [facility] 1 WEEK FOLLOW UP [id number] 04/27/2014 04/27/2014 [facility] 1 WEEK FOLLOW UP [id number] 04/27/2014 04/27/2014 [facility] 1 WEEK FOLLOW UP [id number] 04/27/2014 04/27/2014 [facility] 1 WEEK FOLLOW UP [id number] 04/27/2014 04/27/2014 [facility] 1 WEEK FOLLOW UP [id number] 04/27/2014 04/27/2014 [facility] 1 WEEK FOLLOW UP [id number] 04/27/2014 04/27/2014 [facility] 1 WEEK FOLLOW UP [id number] 04/27/2014 04/27/2014 [facility] 1 WEEK FOLLOW UP [id number] 04/27/2014 04/27/2014 [facility] 1 WEEK FOLLOW UP [id number] 04/27/2014 04/27/2014 [facility] 1 WEEK FOLLOW UP [id number] 04/27/2014 04/27/2014 [facility] [id number] Tariq Mendozalam 05/13/2014 05/13/2014 [facility] F/U from ER- chest pain [id number] 05/14/2014 05/14/2014 [facility] F/U from ER- chest pain [id number] 05/14/2014 05/14/2014 [facility] F/U from ER- chest pain [id number] 05/14/2014 05/14/2014 [facility] F/U from ER- chest pain [id number] 05/14/2014 05/14/2014 [facility] F/U from ER- chest pain [id number] 05/14/2014 05/14/2014 [facility] F/U from ER- chest pain [id number] 05/14/2014 05/14/2014 [facility] F/U from ER- chest pain [id number] 05/14/2014 05/14/2014 [facility] F/U from ER- chest pain [id number] 05/14/2014 05/14/2014 [facility] F/U from ER- chest pain [id number] 05/14/2014 05/14/2014 [facility] F/U from ER- chest pain [id number] 05/14/2014 05/14/2014 [facility] Labs [id number] 05/14/2014 05/14/2014 [facility] [id number] 05/14/2014 05/14/2014 [facility] Labs [id number] 05/14/2014 05/14/2014 [facility] [id number] 05/14/2014 05/14/2014 [facility] [id number] 05/14/2014 05/14/2014 [facility] [id number] 05/14/2014 05/14/2014 [facility] [id number] 05/14/2014 05/14/2014 [facility] [id number] 05/14/2014 05/14/2014 [facility] [id number] 05/14/2014 05/14/2014 [facility] [id number] 05/14/2014 05/14/2014 [facility] [id number] 05/15/2014 05/15/2014 [facility] [id number] 05/15/2014 05/15/2014 [facility] [id number] 05/15/2014 05/15/2014 [facility] [id number] 05/15/2014 05/15/2014 [facility] [id number] 05/15/2014 05/15/2014 [facility] [id number] 05/15/2014 05/15/2014 [facility] [id number] 05/15/2014 05/15/2014 [facility] [id number] 05/15/2014 05/15/2014 [facility] [id number] 05/15/2014 05/15/2014 [facility] [id number] 05/15/2014 05/15/2014 [facility] still not feeling better [id number] 05/18/2014 05/18/2014 [facility] still not feeling better [id number] 05/18/2014 05/18/2014 [facility] still not feeling better [id number] 05/18/2014 05/18/2014 [facility] still not feeling better [id number] 05/18/2014 05/18/2014 [facility] still not feeling better [id number] 05/18/2014 05/18/2014 [facility] still not feeling better [id number] 05/18/2014 05/18/2014 [facility] still not feeling better [id number] 05/18/2014 05/18/2014 [facility] still not feeling better [id number] 05/18/2014 05/18/2014 [facility] still not feeling better [id number] 05/18/2014 05/18/2014 [facility] still not feeling better [id number] 05/18/2014 05/18/2014 [facility] Unknown [id number] 05/28/2014 05/28/2014 [facility] Unknown [id number] 05/28/2014 05/28/2014 [facility] Unknown [id number] 05/28/2014 05/28/2014 [facility] Unknown [id number] 05/28/2014 05/28/2014 [facility] Unknown [id number] 05/28/2014 05/28/2014 [facility] Unknown [id number] 05/28/2014 05/28/2014 [facility] Unknown [id number] 05/28/2014 05/28/2014 [facility] Unknown [id number] 05/28/2014 05/28/2014 [facility] Unknown [id number] 05/28/2014 05/28/2014 [facility] Unknown [id number] 05/28/2014 05/28/2014 [facility] TMT- [id number] 05/29/2014 05/29/2014 [facility] TMT- [id number] 05/29/2014 05/29/2014 [facility] TMT- [id number] 05/29/2014 05/29/2014 [facility] TMT- [id number] 05/29/2014 05/29/2014 [facility] TMT- [id number] 05/29/2014 05/29/2014 [facility] TMT- [id number] 05/29/2014 05/29/2014 [facility] TMT- [id number] 05/29/2014 05/29/2014 [facility] TMT- [id number] 05/29/2014 05/29/2014 [facility] TMT- [id number] 05/29/2014 05/29/2014 [facility] TMT- [id number] 05/29/2014 05/29/2014 [facility] MRI / CT RESULTS [id number] 06/05/2014 06/05/2014 [facility] MRI / CT RESULTS [id number] 06/05/2014 06/05/2014 [facility] CT RESULTS [id number] 06/05/2014 06/05/2014 [facility] / CT RESULTS [id number] 06/05/2014 06/05/2014 [facility] MRI / CT RESULTS [id number] 06/05/2014 06/05/2014 [facility] / CT RESULTS [id number] 06/05/2014 06/05/2014 [facility] MRI / CT RESULTS [id number] 06/05/2014 06/05/2014 [facility] MRI / CT RESULTS [id number] 06/05/2014 06/05/2014 [facility] MRI / CT RESULTS [id number] 06/05/2014 06/05/2014 [facility] neck pain [id number] 06/07/2015 06/07/2015 [facility] neck pain [id number] 06/07/2015 06/07/2015 [facility] neck pain [id number] 06/07/2015 06/07/2015 [facility] neck pain [id number] 06/07/2015 06/07/2015 [facility] neck pain [id number] 06/07/2015 06/07/2015 [facility] neck pain [id number] 06/07/2015 06/07/2015 [facility] neck pain [id number] 06/07/2015 06/07/2015 [facility] neck pain [id number] 06/07/2015 06/07/2015 [facility] neck pain [id number] 06/07/2015 06/07/2015 [facility] Unknown [id number] 07/08/2015 07/08/2015 [facility] Unknown [id number] 07/08/2015 07/08/2015 [facility] Unknown [id number] 07/08/2015 07/08/2015 [facility] Unknown [id number] 07/08/2015 07/08/2015 [facility] Unknown [id number] 07/08/2015 07/08/2015 [facility] Unknown [id number] 07/08/2015 07/08/2015 [facility] Unknown [id number] 07/22/2015 07/22/2015 [facility] Unknown [id number] 07/22/2015 07/22/2015 [facility] Unknown [id number] 07/22/2015 07/22/2015 [facility] Unknown [id number] 07/22/2015 07/22/2015 [facility] Unknown [id number] 07/22/2015 07/22/2015 [facility] Unknown [id number] 07/22/2015 07/22/2015 [facility] Unknown [id number] 07/22/2015 07/22/2015 [facility] Unknown [id number] 07/22/2015 07/22/2015 [facility] test results and referral [id number] 08/06/2015 08/06/2015 [facility] test results and referral [id number] 08/06/2015 08/06/2015 [facility] test results and referral [id number] 08/06/2015 08/06/2015 [facility] test results and referral [id number] 08/06/2015 08/06/2015 [facility] test results and referral [id number] 08/06/2015 08/06/2015 [facility] test results and referral [id number] 08/06/2015 08/06/2015 [facility] test results and referral [id number] 08/06/2015 08/06/2015 [facility] [id number] Mary Sloan 08/09/2015 08/10/2015 [facility] Unknown [id number] 08/30/2015 08/30/2015 [facility] Unknown [id number] 08/30/2015 08/30/2015 [facility] Unknown [id number] 08/30/2015 08/30/2015 [facility] Unknown [id number] 08/30/2015 08/30/2015 [facility] Unknown [id number] 08/30/2015 08/30/2015 [facility] left leg pain [id number] 09/13/2015 09/13/2015 [facility] left leg pain [id number] 09/13/2015 09/13/2015 [facility] left leg pain [id number] 09/13/2015 09/13/2015 [facility] left leg pain [id number] 09/13/2015 09/13/2015 [facility] [id number] Dori JuarezAram 09/13/2015 09/14/2015 [facility] Outpatient [id number] Josuedaniel Rodrigez 01/08/2016 01/09/2016 [facility] Recurring [id number] Josuedaniel Rodrigez 2016 02/13/2016 [facility] Recurring [id number] Josuedaniel Rodrigez 02/13/2016 03/14/2016 [facility] Needs call back from Medical Staff [id number] 03/17/2016 03/17/2016 [facility] Needs call back from Medical Staff [id number] 03/17/2016 03/17/2016 [facility] Needs call back from Medical Staff [id number] 03/17/2016 03/17/2016 [facility] [id number] Josuedaniel Rodrigez 04/09/2016 04/10/2016 [facility] pain [id number] 04/30/2016 04/30/2016 [facility] pain [id number] 04/30/2016 04/30/2016 [facility] WWE [id number] 05/13/2016 05/13/2016 [facility] Outpatient [id number] CODY WOODS 06/02/2016 [facility] Emergency [id number] Robert Erin 06/27/2016 06/27/2016 [facility] Outpatient [id number] Josue Rodrigez 10/22/2016 10/23/2016 [facility] Emergency [id number] Virgen Watson 03/25/2017 03/26/2017 [facility] Outpatient [id number] Gely Talamantes 04/22/2017 04/22/2017 [facility] Outpatient [id number] Dori Escobar 06/30/2017 07/01/2017 [facility] Procedures Procedure Code Date Perfomer Comments Source
--- OUTSIDE RECORDS SUMMARY | 2018-05-18 20:39 | XMS REPORT ---
Author Nicole Burnham [facility] eClinicalWorks Address Unknown Phone Unavailable Care Team Providers Care Medical Billing Associate Name Role Phone Nicole Lui Unavailable Allergies, Adverse Reactions, Alerts Substance Reaction Event Type N.K.D.A. 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 Assessment Left leg pain M79.605 Active Assessment Varicose veins of both lower extremities I83.93 Active Problem Esophagitis K20.9 Active Problem Hx of laparoscopic gastric banding Z98.84 Active Assessment HTN (hypertension) I10 Active Problem Vitamin D deficiency E55.9 Active Assessment Left ankle swelling M25.472 Active Problem 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 Medications Medication Code System Code Instructions Start Date End Date Status Dosage Lansoprazole [facility] 96168557415 30 mg Orally Once a day Active 1 capsule Aspir-81 [facility] 62992467387 81 MG Orally Once a day Active 1 tablet Diovan [facility] [address]-80 160 MG Orally Once a day (MUST HAVE LABS DONE BEFORE NEXT REFILL) Active 1/2 half tablet Diovan [facility] 92462223580 160 MG Active TAKE 1 TABLET BY MOUTH DAILY Metoprolol Succinate NDC 0 50 MG Orally Active not defined Escitalopram Oxalate ND 95481549078 10 mg Orally Once a day Active 1 tablet Lidocaine [facility] 29650590121 5 % Externally up to Three times a day May 13, 2016 Active 1 application to lower back Ibuprofen [facility] 05510323698 800 MG Orally Q8 PRN June 30, 2017 July 07, 2017 Active 1 tablet with food or milk as needed Arimidex [facility] 32698881263 1 MG Orally Once a day Active 1 tablet Tri-Anai [facility] 90854943917 0.01-4-0.05 % Externally Once a day Apr 27, 2014 Active 1 application to affected area at bedtime Vital Signs Date/Time: June 30, 2017 BMI 37.73 Index Weight 213 lbs Height 63 in Cardiac Monitoring Heart Rate 72 /min Blood Pressure Diastolic 70 mm Hg Blood Pressure Systolic 110 mm Hg Results No Known Results Summary Purpose eClinicalWorks Submission
--- OUTSIDE RECORDS SUMMARY | 2018-05-18 20:39 | XMS REPORT ---
Author Loco Munoz Organization [employer] Address Unknown Phone Unavailable Care Team Providers Care Room Service Bellhop Name Role Phone Loco Ryan CP Unavailable Allergies, Adverse Reactions, Alerts Substance Reaction Event Type N.K.D.A. 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 Problem Lumbago with sciatica, right side M54.41 Active Problem Colon polyp K63.5 Active Problem BMI 37.0-37.9, adult Z68.37 Active Problem Lumbago with sciatica, left side M54.42 Active Assessment Lumbago with sciatica, left side M54.42 Active Assessment 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 Assessment History of breast cancer Z85.3 Active Assessment Lumbago with sciatica, right side M54.41 Active Problem Hx of laparoscopic gastric banding Z98.84 Active Problem Vitamin D deficiency E55.9 Active Assessment Breast pain, right N64.4 Active Problem Cervical nerve root impingement 723.4 Active Problem Esophagitis K20.9 Active Problem HTN (hypertension) I10 Active Medications Medication Code System Code Instructions Start Date End Date Status Dosage Diovan [facility] [address]-97 160 MG Orally Once a day Active 1/2 half tablet Tizanidine HCl [facility] 04660149353 4 MG Active TAKE 1 TABLET BY MOUTH AT BEDTIME NEEDED Lidocaine [facility] [address]-60 5 % Externally up to Three times a day May 13, 2016 Active 1 application to lower back Aspir-81 [facility] [address]-97 81 MG Orally Once a day Active 1 tablet Escitalopram Oxalate [facility] [address]-63 10 MG Orally Once a day June 25, 2016 Active 1 tablet Arimidex [facility] [address]-98 1 MG Orally Once a day Active 1 tablet Tramadol HCl [facility] [address]-04 50 MG Orally every 6 hrs Active 1 tablet as needed Metoprolol Succinate NDC 0 50 MG Orally Active not defined Lansoprazole [facility] [address]-93 30 mg Orally Once a day Active 1 capsule Vital Signs Date/Time: June 25, 2016 BMI 37.55 Index Weight 212 lbs Height 63 in Cardiac Monitoring Heart Rate 83 /min Blood Pressure Diastolic 68 mm Hg Blood Pressure Systolic 100 mm Hg Results No Known Results Summary Purpose eClinicalWorks Submission
--- OUTSIDE RECORDS SUMMARY | 2018-05-18 20:39 | XMS REPORT ---
Author Author Loco Ryan Organization [employer] Address Unknown Phone Unavailable Care Team Providers Care Silver Miner Blasting Name Role Phone Loco Ryan CP Unavailable Allergies, Adverse Reactions, Alerts Substance Reaction Event Type N.K.D.A. Info Not Available Non Drug Allergy Encounters Encounter Location Date Unknown [facility] Apr 21, 2014 1 WEEK FOLLOW UP [facility] Apr 27, 2014 F/U from ER- chest pain [facility] May 14, 2014 Labs [facility] May 15, 2014 ankle pain/eye [facility] September 22, 2013 Unknown [facility] Feb 28, 2014 sick [facility] Apr 20, 2014 Unknown [facility] May 28, 2014 Labs [facility] May 14, 2014 still not feeling better [facility] May 18, 2014 test results and referral [facility] August 06, 2015 neck pain [facility] June 07, 2015 Unknown [facility] July 22, 2015 KATHRINE- [facility] May 29, 2014 MRI / CT RESULTS [facility] June 05, 2014 Problems Problem Type Condition ICD-9 Code Onset Dates Condition Status Assessment 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 Problem Vitamin D deficiency E55.9 Active Assessment Abnormal finding on mammography R92.8 Active Assessment Bacteria in urine N39.0 Active Problem 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 Problem 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 Problem Colon polyp K63.5 Active Problem Hypothyroid E03.9 Active Problem Cervical nerve root impingement 723.4 Active Problem PVC (premature ventricular contraction) I49.3 Active Problem HTN (hypertension) I10 Active Medications Medication Code System Code Instructions Start Date End Date Status Dosage Synthroid [facility] [address]-28 25 MCG Orally Once a day (MUST SEE DOCTOR BEFORE NEXT REFILL) Feb 05, 2015 Inactive 1 tablet Naproxen [facility] 84039328335 500 MG Active TAKE 1 TABLET BY MOUTH EVERY 12 HOURS NEEDED Tri-Anai [facility] [address]-65 0.01-4-0.05 % Externally Once a day Apr 27, 2014 Active 1 application to affected area at bedtime Cipro [facility] [address]-77 250 MG Orally every 12 hrs June 07, 2015 August 09, 2015 Active 1 tablet Tizanidine HCl [facility] 83318862167 4 MG Active TAKE 1 TABLET BY MOUTH AT BEDTIME NEEDED Diovan [facility] 69281989259 160 MG Orally Once a day Active 1 tablet Social History Social History Element Qualifiers Date Reported Tobacco Use: . Are you a: never smoker August 06, 2015 Marital Status: . August 06, 2015 Caffeine intake? . Status: Yes August 06, 2015 Do you exercise? . Answer: No August 06, 2015 Do you drink alcohol? . 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
--- OUTSIDE RECORDS SUMMARY | 2018-05-18 20:39 | XMS REPORT ---
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 [address]-09 160 MG Orally Once a day (MUST HAVE LABS DONE BEFORE NEXT REFILL) Active 1/2 half tablet Results No Known Results Summary Purpose eClinicalWorks Submission
--- OUTSIDE RECORDS SUMMARY | 2018-05-18 20:39 | XMS REPORT ---
Author Author Dori Pastrana [facility] eClinicalWorks Address Unknown Phone Unavailable Care Team Providers Care Lathe Scalper Operator Name Role Phone Juarez Dori Adames Unavailable Encounters Encounter Location Date Unknown [facility] Apr 21, 2014 1 WEEK FOLLOW UP [facility] Apr 27, 2014 F/U from ER- chest pain [facility] May 14, 2014 Labs [facility] May 15, 2014 ankle pain/eye [facility] September 22, 2013 Unknown [facility] Feb 28, 2014 sick [facility] Apr 20, 2014 Unknown [facility] May 28, 2014 Labs [facility] May 14, 2014 still not feeling better [facility] May 18, 2014 Unknown [facility] August 30, 2015 left leg pain [facility] September 13, 2015 test results and referral [facility] August 06, 2015 Unknown [facility] July 08, 2015 neck pain [facility] June 07, 2015 Unknown [facility] July 22, 2015 KATHRINE- [facility] May 29, 2014 MRI / CT RESULTS [facility] June 05, 2014 Needs call back from Medical Staff [facility] Mar 17, 2016 Problems Problem Type Condition ICD-9 Code Onset Dates Condition Status Problem Esophagitis K20.9 Active Problem Vitamin D deficiency E55.9 Active Problem Hx of laparoscopic gastric banding Z98.84 Active Problem Breast cancer C50.919 Active Problem 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 Are you a: never smoker September 19, 2015 Marital Status: . September 19, 2015 Caffeine intake? . Status: Yes September 19, 2015 Do you exercise? . Answer: No September 19, 2015 Do you drink alcohol? . 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
--- OUTSIDE RECORDS SUMMARY | 2018-05-18 20:39 | XMS REPORT ---
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
--- OUTSIDE RECORDS SUMMARY | 2018-05-18 20:39 | XMS REPORT ---
Author Author Dori Buckner [facility] eClinicalWorks Address Unknown Phone Unavailable Care Team Providers Care Diver Assistant Name Role Phone LarryZacarias Dori CP Unavailable Encounters Encounter Location Date Unknown [facility] Apr 21, 2014 ankle pain/eye [facility] September 22, 2013 Unknown [facility] Feb 28, 2014 sick [facility] Apr 20, 2014 Problems Problem Type Condition ICD-9 Code Onset Dates Condition Status Problem HTN (Unspecified essential hypertension) 401.9 Active Problem Vitamin d deficiency 268.9 Active Medications Medication Code System Code Instructions Start Date End Date Status Dosage Diovan [facility] [address]-02 160 MG Orally Once a day May 22, 2013 Active 1 tablet Naproxen [facility] [address]-49 500 mg Orally every 12 hrs Apr 20, 2014 May 21, 2014 Active 1 tablet as needed Amoxicillin [facility] [address]-54 500 mg Orally twice a day (bid) Apr 21, 2014 May 01, 2014 Active 1 capsule Flexeril [facility] [address]-72 5 MG Orally Three times a day as needed for pain Apr 20, 2014 May 21, 2014 Active 1 tablet Social History Social History Element Qualifiers Date Reported Tobacco Use: . Are you a: never smoker Apr 20, 2014 Marital Status: . Apr 20, 2014 Do you drink alcohol? . 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
--- OUTSIDE RECORDS SUMMARY | 2018-05-18 20:39 | XMS REPORT ---
Author Author Miryam Bishop [facility] eClinicalWorks Address Unknown Phone Unavailable Care Team Providers Care Bilingual Branch Manager Name Role Phone Miryam Bishop CP Unavailable Allergies, Adverse Reactions, Alerts Substance Reaction Event Type N.K.D.A. Info Not Available Non Drug Allergy Encounters Encounter Location Date ankle pain/eye [facility] September 22, 2013 Problems Problem Type Condition ICD-9 Code Onset Dates Condition Status Problem HTN (Unspecified essential hypertension) 401.9 Active Assessment Left ankle pain 719.47 Active Problem Vitamin d deficiency 268.9 Active Assessment Left ankle swelling 719.07 Active Assessment Stye 373.11 Active Medications Medication Code System Code Instructions Start Date End Date Status Dosage Tramadol HCl [facility] [address]-41 50 mg Orally every 6 hrs prn pain September 22, 2013 October 02, 2013 Active 1 tablet as needed Diovan [facility] [address]-13 160 MG Orally Once a day May 22, 2013 Active 1 tablet Tramadol HCl [facility] [address]-07 50 mg Orally every 6 hrs if needed May 22, 2013 Active 1 tablet on the tongue and allow to dissolve as needed Erythromycin [facility] [address]-19 5 MG/GM Ophthalmic 4 times a day September 22, 2013 September 29, 2013 Active apply 1cm ribbon to affected lid Naproxen [facility] [address]-45 500 mg Orally every 12 hrs September 22, 2013 October 22, 2013 Active 1 tablet as needed Social History Social History Element Qualifiers Date Reported Tobacco Use: . Are you a: never smoker September 22, 2013 Marital Status: . September 22, 2013 Do you drink alcohol? . 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
--- OUTSIDE RECORDS SUMMARY | 2018-05-18 20:39 | XMS REPORT ---
Author Author Loco Ryan [facility] eClinicalWorks Address Unknown Phone Unavailable Care Team Providers Care Medical/Surgery Registered Nurse Name Role Phone Loco Ryan CP Unavailable Allergies, Adverse Reactions, Alerts Substance Reaction Event Type N.K.D.A. Info Not Available Non Drug Allergy Encounters [facility] Apr 20, 2014 Unknown [facility] May 28, 2014 WWE [facility] May 13, 2016 pain [facility] Apr 30, 2016 Labs [facility] May 14, 2014 still not feeling better [facility] May 18, 2014 Unknown [facility] August 30, 2015 left leg pain [facility] September 13, 2015 test results and referral [facility] August 06, 2015 Unknown [facility] July 08, 2015 neck pain [facility] June 07, 2015 Unknown [facility] July 22, 2015 KATHRINE- DR.G Juarez [facility] May 29, 2014 MRI / CT RESULTS [facility] June 05, 2014 Needs call back from Medical Staff [facility] Mar 17, 2016 Problems Problem Type Condition ICD-9 Code Onset Dates Condition Status Problem HTN (hypertension) I10 Active Problem 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 Problem PVC (premature ventricular contraction) I49.3 Active Problem History of breast cancer Z85.3 Active Problem BMI 37.0-37.9, adult Z68.37 Active Problem History of DVT (deep vein thrombosis) Z86.718 Active Problem Colon polyp K63.5 Active Problem 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 Problem Lumbago with sciatica, left side M54.42 Active Problem Lumbago with sciatica, right side M54.41 Active Assessment Lumbar canal stenosis M48.06 Active Assessment Screening for malignant neoplasm of the rectum Z12.12 Active Problem Esophagitis K20.9 Active Problem Hx of laparoscopic gastric banding Z98.84 Active Assessment PVC (premature ventricular contraction) I49.3 Active Problem Vitamin D deficiency E55.9 Active Assessment Routine general medical examination at a health care facility Z00.00 Active Problem Cervical nerve root impingement 723.4 Active Medications Medication Code System Code Instructions Start Date End Date Status Dosage Tizanidine HCl [facility] 96387868506 4 MG Active TAKE 1 TABLET BY MOUTH AT BEDTIME NEEDED Lansoprazole [facility] [address]-71 30 mg Orally Once a day Active 1 capsule Aspir-81 [facility] [address]-34 81 MG Orally Once a day Active 1 tablet Metoprolol Succinate Unknown 0 50 MG Orally Active Unknown Lidocaine [facility] [address]-28 5 % Externally up to Three times a day May 13, 2016 Active 1 application to lower back Tramadol HCl [facility] [address]-01 50 MG Orally every 6 hrs Active 1 tablet as needed Diovan [facility] [address]-20 160 MG Orally Once a day Active 1/2 half tablet Social History Social History Element Qualifiers Date 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 Status , Is romansh your primary language? Yes May 13, 2016 Flu Vaccine: . No, Advised May 13, 2016 children . 3 May 13, 2016 Depression Screening: . negative May 13, 2016 Tobacco Use: . Are you a: never smoker May 13, 2016 Do you have pets? . Status: No May 13, 2016 Last Colonoscopy: . 10/2012May 13, 2016 Pneumoccocal Vaccine . No May 13, 2016 Marital Status: . Ayden May 13, 2016 Caffeine intake? . Status: Yes May 13, 2016 Do you exercise? . Answer: No May 13, 2016 Fall Risk: . none in the past year May 13, 2016 Last Bone Density: . 04/30/2016 May 13, 2016 Do you drink alcohol? . Status: Yes, Type: Rarely May 13, 2016 Vital Signs Date/Time: May 13, 2016 Weight 215 lbs Height 63 in Cardiac Monitoring Heart Rate 60 /min Blood Pressure Diastolic 72 mm Hg Blood Pressure Systolic 124 mm Hg Summary Purpose eClinicalWorks Submission
--- OUTSIDE RECORDS SUMMARY | 2018-05-18 20:39 | XMS REPORT ---
Author Author Larry AdamesDori [facility] eClinicalWorks Address Unknown Phone Unavailable Care Team Providers Care Ship/Rec/Doc Control Name Role Phone Larry Adames Dori Unavailable Encounters [facility] Apr 20, 2014 Unknown [facility] May 28, 2014 Labs [facility] May 14, 2014 still not feeling better [facility] May 18, 2014 neck pain [facility] June 07, 2015 Unknown [facility] July 22, 2015 KATHRINE- [facility] May 29, 2014 MRI / CT RESULTS [facility] June 05, 2014 Problems Problem Type Condition ICD-9 Code Onset Dates Condition Status Problem HTN (hypertension), benign 401.1 Active Problem Vitamin d deficiency 268.9 Active Problem 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 Are you a: never smoker June 07, 2015 Marital Status: . June 07, 2015 Caffeine intake? . Status: Yes June 07, 2015 Do you exercise? . Answer: No June 07, 2015 Do you drink alcohol? . 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
--- OUTSIDE RECORDS SUMMARY | 2018-05-18 20:39 | XMS REPORT ---
Author Author Loco Ryan Organization eClinicalWorks Address Unknown Phone Unavailable Care Team Providers Care Line Production Cook Name Role Phone Loco Ryan CP Unavailable Encounters Encounter Location Date Unknown [facility] Apr 21, 2014 1 WEEK FOLLOW UP [facility] Apr 27, 2014 F/U from ER- chest pain [facility] May 14, 2014 Labs [facility] May 15, 2014 ankle pain/eye [facility] September 22, 2013 Unknown [facility] Feb 28, 2014 sick [facility] Apr 20, 2014 Unknown [facility] May 28, 2014 Labs [facility] May 14, 2014 still not feeling better [facility] May 18, [address] [facility] August 30, 2015 test results and referral [facility] August 06, 2015 Unknown [facility] July 08, 2015 neck pain [facility] June 07, [address] [facility] July 22, 2015 KATHRINE- [facility] May 29, 2014 MRI / CT RESULTS [facility] June 05, 2014 Problems Problem Type Condition ICD-9 Code Onset Dates Condition Status Problem Vitamin D deficiency E55.9 Active Assessment Breast mass N63 Active Problem 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
--- OUTSIDE RECORDS SUMMARY | 2018-05-18 20:39 | XMS REPORT ---
Author Author Dori Buckner [facility] eClinicalWorks Address Unknown Phone Unavailable Care Team Providers Care Rope Walker Name Role Phone Dori Buckner Unavailable Encounters Encounter Location Date ankle pain/eye [facility] September 22, 2013 Unknown [facility] Feb 28, 2014 Problems Problem Type Condition ICD-9 Code Onset Dates Condition Status Problem HTN (Unspecified essential hypertension) 401.9 Active Problem Vitamin d deficiency 268.9 Active Medications Medication Code System Code Instructions Start Date End Date Status Dosage Diovan MEDISPAN [address]-70 160 MG Orally Once a day May 22, 2013 Active 1 tablet Social History Social History Element Qualifiers Date Reported Tobacco Use: . Are you a: never smoker September 22, 2013 Marital Status: . September 22, 2013 Do you drink alcohol? . 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
--- OUTSIDE RECORDS SUMMARY | 2018-05-18 20:39 | XMS REPORT ---
Author Author Miryam Bishop [facility] eClinicalWorks Address Unknown Phone Unavailable Care Team Providers Care Hoop Cutter Name Role Phone Miryam Bishop CP Unavailable Allergies, Adverse Reactions, Alerts Substance Reaction Event Type N.K.D.A. Info Not Available Non Drug Allergy Encounters Encounter Location Date Unknown [facility] Apr 21, 2014 1 WEEK FOLLOW UP [facility] Apr 27, 2014 ankle pain/eye [facility] September 22, 2013 Unknown [facility] Feb 28, 2014 sick [facility] Apr 20, 2014 Problems Problem Type Condition ICD-9 Code Onset Dates Condition Status Problem HTN (Unspecified essential hypertension) 401.9 Active Assessment Shoulder pain, left 719.41 Active Problem Vitamin d deficiency 268.9 Active Assessment Chest wall discomfort 786.52 Active Assessment Neck pain on left side 723.1 Active Assessment Discoloration of skin 709.00 Active Medications Medication Code System Code Instructions Start Date End Date Status Dosage [facility] [address]-30 0.01-4-0.05 % Externally Once a day Apr 27, 2014 Active 1 application to affected area at bedtime Naproxen [facility] [address]-74 500 mg Orally every 12 hrs Apr 20, 2014 May 21, 2014 Active 1 tablet as needed Amoxicillin MEDISPAN [address]-83 500 mg Orally twice a day (bid) Apr 21, 2014 May 01, 2014 Active 1 capsule Medrol (Duran) [facility] [address]-41 4 mg Orally daily Apr 27, 2014 May 03, 2014 Active as directed Flexeril MEDISPAN [address]-37 5 MG Orally Three times a day as needed for pain Apr 20, 2014 May 21, 2014 Active 1 tablet Diovan [facility] [address]-64 160 MG Orally Once a day May 22, 2013 Active 1 tablet Social History Social History Element Qualifiers Date Reported Tobacco Use: . Are you a: never smoker Apr 27, 2014 Marital Status: . Apr 27, 2014 Do you drink alcohol? . 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
--- OUTSIDE RECORDS SUMMARY | 2018-05-18 20:39 | XMS REPORT ---
Author Author Loco Ryan Organization eClinicalWorks Address Unknown Phone Unavailable Care Team Providers Care Plant Technician Name Role Phone Loco Ryan CP Unavailable Allergies, Adverse Reactions, Alerts Substance Reaction Event Type N.K.D.A. Info Not Available Non Drug Allergy Encounters Encounter Location Date Unknown [facility] Apr 21, 2014 1 WEEK [address] UP [facility] Apr 27, 2014 F/U from ER- chest pain [facility] May 14, [address] [facility] May 15, 2014 ankle pain/eye [facility] September 22, [address] [facility] Feb 28, [address] [facility] Apr 20, [address] [facility] May 28, [address] [facility] May 14, 2014 still not feeling better [facility] May 18, [address] [facility] June 07, 2015 KATHRINE- DR.G Juarez [facility] May 29, 2014 MRI / CT RESULTS 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 Problem Colon polyp K63.5 Active Problem Hypothyroid E03.9 Active Problem Cervical nerve root impingement 723.4 Active Problem PVC (premature ventricular contraction) I49.3 Active Problem HTN (hypertension) I10 Active Assessment HTN (hypertension) I10 Active Assessment Dark urine R82.99 Active Assessment Vitamin D deficiency E55.9 Active Assessment Hypothyroid E03.9 Active Assessment 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 Assessment Colon polyp K63.5 Active Assessment PVC (premature ventricular contraction) I49.3 Active Assessment Encounter for screening mammogram for malignant neoplasm of breast Z12.31 Active Assessment 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 Assessment Special screening for malignant neoplasms, colon Z12.11 Active Medications Medication Code System Code Instructions Start Date End Date Status Dosage Diovan [facility] 42636245974 160 MG Orally Once a day Active 1 tablet Tizanidine HCl [facility] 91218309996 4 MG Active TAKE 1 TABLET BY MOUTH AT BEDTIME NEEDED Naproxen [facility] 59778133357 500 MG Active TAKE 1 TABLET BY MOUTH EVERY 12 HOURS NEEDED Cipro [facility] [address]-07 250 MG Orally every 12 hrs June 07, 2015 June 10, 2015 Active 1 tablet Synthroid [facility] [address]-63 25 MCG Orally Once a day (MUST SEE DOCTOR BEFORE NEXT REFILL) Feb 05, 2015 Active 1 tablet Tri-Anai [facility] [address]-57 0.01-4-0.05 % Externally Once a day Apr 27, 2014 Active 1 application to affected area at bedtime Social History Social History Element Qualifiers Date Reported Tobacco Use: . Are you a: never smoker June 07, 2015 Marital Status: . June 07, 2015 Caffeine intake? . Status: Yes June 07, 2015 Do you exercise? . Answer: No June 07, 2015 Do you drink alcohol? . 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, 2015 Family history Qualifier Description Comment Date Reported Maternal Grandmother Comment not available June 07, 2015 Paternal Grandmother Comment not available June 07, 2015 Siblings hypertension, diabetes June 07, 2015 Maternal Grandfather Comment not available June 07, 2015 Children Comment not available June 07, 2015 Father Comment not available June 07, 2015 Paternal Grandfather Comment not available June 07, 2015 Mother diabetes, hypertension June 07, 2015 Other: Comment not available June 07, 2015 Vital Signs Date/Time: June 07, 2015 Weight 207 lbs Height 63 in Summary Purpose eClinicalWorks Submission
--- OUTSIDE RECORDS SUMMARY | 2018-05-18 20:39 | XMS REPORT ---
Author Author Loco Ryan [facility] eClinicalWorks Address Unknown Phone Unavailable Care Team Providers Care Punchboard Assembler Name Role Phone Loco Ryan CP Unavailable Allergies, Adverse Reactions, Alerts Substance Reaction Event Type N.K.D.A. Info Not Available Non Drug Allergy Encounters Encounter Location Date Unknown [facility] Apr 21, 2014 1 WEEK FOLLOW UP [facility] Apr 27, 2014 F/U from ER- chest pain [facility] May 14, 2014 Labs [facility] May 15, 2014 ankle pain/eye [facility] September 22, 2013 Unknown [facility] Feb 28, 2014 sick [facility] Apr 20, 2014 Unknown [facility] May 28, 2014 pain [facility] Apr 30, 2016 Labs [facility] May 14, 2014 still not feeling better [facility] May 18, 2014 Unknown [facility] August 30, 2015 left leg pain [facility] September 13, 2015 test results and referral [facility] August 06, 2015 Unknown [facility] July 08, 2015 neck pain [facility] June 07, 2015 Unknown [facility] July 22, 2015 MARTIN ZHANG [facility] May 29, 2014 MRI / CT RESULTS [facility] June 05, 2014 Needs call back from Medical Staff [facility] Mar 17, 2016 Problems Problem Type Condition [...] with sciatica, right side M54.41 Active Assessment BMI 37.0-37.9, adult Z68.37 Active Assessment History of breast cancer Z85.3 Active Assessment Menopause Z78.0 Active Assessment URI with cough and congestion J06.9 Active Problem Esophagitis K20.9 Active Problem Hx of laparoscopic gastric banding Z98.84 Active Assessment Lumbago with sciatica, right side M54.41 Active Problem Vitamin D deficiency E55.9 Active Assessment Lumbago with sciatica, left side M54.42 Active Problem Cervical nerve root impingement 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.4 Active Medications Medication Code System Code Instructions Start Date End Date Status Dosage Metoprolol Succinate Unknown 0 50 MG Orally Active Unknown Tizanidine HCl [facility] 56842622366 4 MG Active TAKE 1 TABLET BY MOUTH AT BEDTIME NEEDED Diovan [facility] [address]-56 160 MG Orally Once a day Active 1/2 half tablet Ceftin [facility] [address]-01 250 MG Orally Twice a day Apr 30, 2016 May 10, 2016 Active 1 tablet Tramadol HCl [facility] [address]-39 50 MG Orally every 6 hrs Active 1 tablet as needed Lansoprazole [facility] [address]-69 30 mg Orally Once a day Active 1 capsule Tessalon Perles [facility] [address]-80 100 MG Orally Three times a day Apr 30, 2016 May 10, 2016 Active 1 capsule as needed Aspir-81 [facility] [address]-14 81 MG Orally Once a day Active 1 tablet Social History Social History Element Qualifiers Date Reported Tobacco Use: . Are you a: never smoker Apr 30, 2016 Do you have pets? . Status: No Apr 30, 2016 Marital Status: . Apr 30, 2016 Caffeine intake? . Status: Yes Apr 30, 2016 Do you exercise? . Answer: No Apr 30, 2016 Do you drink alcohol? . 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
--- OUTSIDE RECORDS SUMMARY | 2018-05-18 20:39 | XMS REPORT ---
Author Author Larry AdamesDori Organization eClinicalWorks Address Unknown Phone Unavailable Care Team Providers Care Parking Line Painter Name Role Phone Dori Pastrana Unavailable Encounters Encounter Location Date Unknown [facility] Apr 21, 2014 1 WEEK FOLLOW UP [facility] Apr 27, 2014 F/U from ER- chest pain [facility] May 14, 2014 Labs [facility] May 15, 2014 ankle pain/eye [facility] September 22, 2013 Unknown [facility] Feb 28, 2014 sick [facility] Apr 20, 2014 Unknown [facility] May 28, 2014 Labs [facility] May 14, 2014 still not feeling better [facility] May 18, 2014 test results and referral [facility] August 06, 2015 Unknown [facility] July 08, 2015 neck pain [facility] June 07, 2015 Unknown [facility] July 22, 2015 KATHRINE- [facility] May 29, 2014 MRI / CT RESULTS [facility] June 05, 2014 Problems Problem Type Condition ICD-9 Code Onset Dates Condition Status Problem Vitamin D deficiency E55.9 Active Problem 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
--- OUTSIDE RECORDS SUMMARY | 2018-05-18 20:39 | XMS REPORT ---
Author Author Asha Coley [facility] eClinicalWorks Address Unknown Phone Unavailable Care Team Providers Care Repairer Cylinder Heads Name Role Phone Asha Coley Unavailable Allergies, Adverse Reactions, Alerts Substance Reaction Event Type N.K.D.A. Info Not Available Non Drug Allergy Encounters Encounter Location Date Unknown [facility] Apr 21, 2014 1 WEEK FOLLOW UP [facility] Apr 27, 2014 F/U from ER- chest pain [facility] May 14, 2014 Labs [facility] May 15, 2014 ankle pain/eye [facility] September 22, 2013 Unknown [facility] Feb 28, 2014 sick [facility] Apr 20, 2014 Unknown [facility] May 28, 2014 Labs [facility] May 14, 2014 still not feeling better [facility] May 18, 2014 Unknown [facility] August 30, 2015 left leg pain [facility] September 13, 2015 test results and referral [facility] August 06, 2015 Unknown [facility] July 08, 2015 neck pain [facility] June 07, 2015 Unknown [facility] July 22, 2015 MARTIN ZHANG [facility] May 29, 2014 MRI / CT RESULTS [facility] June 05, 2014 Problems Problem Type Condition ICD-9 Code Onset Dates Condition Status Problem Esophagitis K20.9 Active Problem Vitamin D deficiency E55.9 Active Problem Hx of laparoscopic gastric banding Z98.84 Active Assessment Pain of left calf M79.662 Active Problem 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 Problem 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 Problem Colon polyp K63.5 Active Problem Hypothyroid E03.9 Active Problem Cervical nerve root impingement 723.4 Active Problem PVC (premature ventricular contraction) I49.3 Active Problem HTN (hypertension) I10 Active Medications Medication Code System Code Instructions Start Date End Date Status Dosage Tramadol HCl [facility] [address]-52 50 MG Orally every 6 hrs Active 1 tablet as needed Metoprolol Succinate Unknown 0 50 MG Orally Active Unknown Tizanidine HCl [facility] 88199580400 4 MG Active TAKE 1 TABLET BY MOUTH AT BEDTIME NEEDED Aspir-81 [facility] [address]-13 81 MG Orally Once a day Active 1 tablet Lansoprazole [facility] [address]-23 30 mg Orally Once a day Active 1 capsule Diovan [facility] [address]-75 160 MG Orally Once a day Active 1/2 half tablet Naproxen [facility] 67539209321 500 MG Active TAKE 1 TABLET BY MOUTH EVERY 12 HOURS NEEDED Tri-Anai [facility] [address]-88 0.01-4-0.05 % Externally Once a day Apr 27, 2014 Active 1 application to affected area at bedtime Social History Social History Element Qualifiers Date Reported Tobacco Use: . Are you a: never smoker September 13, 2015 Marital Status: . September 13, 2015 Caffeine intake? . Status: Yes September 13, 2015 Do you exercise? . Answer: No September 13, 2015 Do you drink alcohol? . 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
--- OUTSIDE RECORDS SUMMARY | 2018-05-18 20:39 | XMS REPORT | Summary of Care ---
Author Organization Unknown Address Unknown Phone Unavailable Encounter MARK Hall(RAMIRO) [id number] Date(s): 05/12/14 - 05/12/14 [facility] [address] [place], [place] [address] - [facility] Discharge Diagnosis: Chest pain Discharge Disposition: Home Physician Attending: Tariq West MD Reason for Visit CHEST PAIN Vital Signs 1 2 3 Most recent to oldest [Reference Range]: 157.48 cm (05/12/14 6:37 PM) Height 98.6 DegF (05/12/14 10:30 PM) 98.5 DegF (05/12/14 9:58 PM) 98.6 DegF (05/12/14 8:44 PM) Temperature Oral [96.4-99.1 DegF] 112 mmHg (05/12/14 10:30 PM) 111 mmHg (05/12/14 9:58 PM) 122 mmHg (05/12/14 8:44 PM) Systolic Blood Pressure [90-140 mmHg] 65 mmHg (05/12/14 10:30 PM) 65 mmHg (05/12/14 9:58 PM) 61 mmHg (05/12/14 8:44 PM) Diastolic Blood Pressure [60-90 mmHg] 17 BRMIN (05/12/14 10:30 PM) 12 BRMIN *LOW* (05/12/14 9:58 PM) 16 BRMIN (05/12/14 8:44 PM) Respiratory Rate [14-20 BRMIN] 71 bpm (05/12/14 10:30 PM) 58 bpm *LOW* (05/12/14 9:58 PM) 72 bpm (05/12/14 8:44 PM) Peripheral Pulse Rate [60-100 bpm] 92.727 kg (05/12/14 6:37 PM) Weight 37.39 m2 (05/12/14 6:37 PM) Body Mass Index Problem List Condition Effective Dates Status Health Status Informant Hypertension(Confirm Resolved ed) Allergies, Adverse Reactions, Alerts Substance Reaction Severity Status NKDA Active Medications aspirin 324 mg, Route: PO, ONCE, Dosing Weight 92.727, kg, Priority: STAT, Start date: 0 05/12/14 19:04:00, Stop date: 05/12/14 19:04:00 Start Date: 05/12/14 Stop Date: 05/12/14 Status: Completed codeine-guaiFENesin 10 mg-200 mg/5 mL oral liquid 10 ml, PO, Q4H, for cough and congestion, # 420 mL, 0 Refill(s) Start Date: 05/12/14 Stop Date: 05/19/14 Status: Ordered Dilaudid 1 mg, Route: IVP, ONCE, Dosing Weight 92.727, kg, Priority: STAT, Start date: 22:09:00, Stop date: 05/12/14 22:09:00 Start Date: 05/12/14 Stop Date: 05/12/14 Status: Completed morphine Sulfate 4 mg, Route: IVP, ONCE, Dosing Weight 92.727, kg, Priority: STAT, Start date: 19:36:00, Stop date: 05/12/14 19:36:00 Start Date: 05/12/14 Stop Date: 05/12/14 Status: Completed ondansetron 4 mg, Route: IVP, Drug form: INJ, ONCE, Dosing Weight 92.727, kg, Priority: STAT , Start date: 05/12/14 19:36:00, Stop date: 05/12/14 19:36:00 Start Date: 05/12/14 Stop Date: 05/12/14 Status: Completed Saline Flush 0.9% 10 mL, Route: IVP, Drug Form: INJ, Dosing Weight 92.727, kg, PRN, PRN Line Flush , Start date: 05/12/14 19:04:00, Duration: 30 day, Stop date: 06/11/14 20:03:00 Notes: (Same as: BD Posiflush) Start Date: 05/12/14 Stop Date: 05/13/14 Status: Discontinued Sodium Chloride 0.9% (Bolus) IV 1,000 mL, Infuse Over: 1 hr, Route: IV, ONCE, Priority: STAT, Dosing Weight 92.7 27 kg, Start date: 05/12/14 19:04:00, Duration: 1 doses or times, Stop date: 19:04:00 Start Date: 05/12/14 Stop Date: 05/12/14 Status: Completed Results ELECTROLYTES Most recent to 1 oldest [Reference Range]: Sodium Lvl [135-145 139 mEq/L mEq/L] (05/12/14 7:42 PM) Potassium Lvl 3.9 mEq/L [3.5-5.1 mEq/L] (05/12/14 7:42 PM) Chloride Lvl [95-109 105 mEq/L mEq/L] (05/12/14 7:42 PM) CO2 [24-32 mEq/L] 27 mEq/L (05/12/14 7:42 PM) AGAP [10.0-20.0 10.9 mEq/L mEq/L] (05/12/14 7:42 PM) CHEM PANEL Most recent to 1 oldest [Reference Range]: Creatinine Lvl 1.1 mg/dL [0.5-1.4 mg/dL] (05/12/14 7:42 PM) eGFR 62 mL/min/1.73m2 1 *NA* (05/12/14 7:42 PM) BUN [7-22 mg/dL] 13 mg/dL (05/12/14 7:42 PM) B/C Ratio [6-25] 12 (05/12/14 7:42 PM) Glucose Lvl [70-99 92 mg/dL 2 mg/dL] (05/12/14 7:42 PM) Total Protein 7.0 g/dL [6.4-8.4 g/dL] (05/12/14 7:42 PM) Albumin Lvl [3.5-5.0 3.1 g/dL g/dL] *LOW* (05/12/14 7:42 PM) Globulin [2.0-4.0 3.9 g/dL g/dL] (05/12/14 7:42 PM) A/G Ratio [0.7-1.6] 0.8 (05/12/14 7:42 PM) Calcium Lvl 8.3 mg/dL [8.5-10.5 mg/dL] *LOW* (05/12/14 7:42 PM) ALT [0-65 unit/L] 18 unit/L (05/12/14 7:42 PM) AST [0-37 unit/L] 18 unit/L (05/12/14 7:42 PM) Alk Phos [39-136 91 unit/L unit/L] (05/12/14 7:42 PM) Bili Total [0.2-1.3 0.3 mg/dL mg/dL] (05/12/14 7:42 PM) 1Result Comment: The eGFR is calculated using [...] from the National Kidney Disease Education Program ( NKDEP) which additionally recommends that when the eGFR is used in patients with extremes of body mass index for purposes of drug dosing, the eGFR should be mul tiplied by the estimated BMI. 2Interpretive Data: Adult reference range values reflect the clinical guidelines of the [place] [employer]. CARDIAC ENZYMES Most recent to 1 oldest [Reference Range]: Total CK [12-191 90 unit/L unit/L] (05/12/14 7:42 PM) CK MB [0.5-3.6 <0.5 ng/mL ng/mL] (05/12/14 7:42 PM) CK MB Index <0.6 [0.0-2.5] (05/12/14 7:42 PM) Troponin-I <0.02 ng/mL [0.00-0.40 ng/mL] (05/12/14 7:42 PM) BNP [<=100 pg/mL] 23 pg/mL 3 (05/12/14 7:42 PM) 3Interpretive Data: Elevated results are in line with increasing severity of congestive heart failure. Minor elevations between 100 and 300 may be seen with Myocardial Ischemia, Sodium retaining drugs, and compensated/treated heart failure. HEMATOLOGY Most recent to 1 oldest [Reference Range]: WBC [3.7-10.4 K/CMM] 7.2 K/CMM (05/12/14 7:42 PM) RBC [4.20-5.40 4.42 M/CMM M/CMM] (05/12/14 7:42 PM) Hgb [12.0-16.0 g/dL] 12.4 g/dL (05/12/14 7:42 PM) Hct [36.0-48.0 %] 38.1 % (05/12/14 7:42 PM) MCV [80.0-98.0 fL] 86.1 fL (05/12/14 7:42 PM) MCH [27.0-31.0 pg] 28.1 pg (05/12/14 7:42 PM) MCHC [32.0-36.0 32.6 g/dL g/dL] (05/12/14 7:42 PM) RDW [11.5-14.5 %] 13.9 % (05/12/14 7:42 PM) Platelet [133-450 166 K/CMM K/CMM] (05/12/14 7:42 PM) MPV [7.4-10.4 fL] 10.7 fL *HI* (05/12/14 7:42 PM) Segs [45.0-75.0 %] 48.7 % (05/12/14 7:42 PM) Lymphocytes 38.3 % [20.0-40.0 %] (05/12/14 7:42 PM) Monocytes [2.0-12.0 9.0 % %] (05/12/14 7:42 PM) Eosinophils [0.0-4.0 3.3 % %] (05/12/14 7:42 PM) Basophils [0.0-1.0 0.7 % %] (05/12/14 7:42 PM) Segs-Bands # 3.5 K/CMM [1.5-8.1 K/CMM] (05/12/14 7:42 PM) Lymphocytes # 2.8 K/CMM [1.0-5.5 K/CMM] (05/12/14 7:42 PM) Monocytes # [0.0-0.8 0.7 K/CMM K/CMM] (05/12/14 7:42 PM) Eosinophils # 0.2 K/CMM [0.0-0.5 K/CMM] (05/12/14 7:42 PM) Basophils # [0.0-0.2 0.1 K/CMM K/CMM] (05/12/14 7:42 PM) PT [12.0-14.7 13.1 seconds seconds] (05/12/14 7:42 PM) INR [0.85-1.17] 0.99 4 (05/12/14 7:42 PM) PTT [22.9-35.8 28.7 seconds 5 seconds] (05/12/14 7:42 PM) 4Interpretive Data: RECOMMENDED RANGES FOR PROTIME INR: 2.0-3.0 for most medical and surgical thromboembolic states. 2.5-3.5 for artificial heart valves and recurrent embolism. INR SHOULD BE USED ONLY FOR PATIENTS ON STABLE ANTICOAGULANT THERAPY. 5Interpretive Data: Heparin Therapeutic Range: 57 - 92 Seconds Medications Administered During Your Visit No data available for this section Immunizations No data available for this section Social History Social History Type Response Smoking Status Never smoker, Exposure to Tobacco Smoke None, Cigarette Smoking Last 365 Days No, Reg Smoking Cessation Counseling No
--- OUTSIDE RECORDS SUMMARY | 2018-05-18 20:39 | XMS REPORT ---
Author Author Mary Sloan eClinical[employer] Address Unknown Phone Unavailable Care Team Providers Care Line Maintenance Name Role Phone Mary Sloan CP Unavailable Encounters Encounter Location Date Unknown [facility] Apr 21, 2014 1 WEEK FOLLOW UP [facility] Apr 27, 2014 F/U from ER- chest pain [facility] May 14, 2014 Labs [facility] May 15, 2014 ankle pain/eye [facility] September 22, 2013 TMT- [facility] May 29, 2014 Unknown [facility] Feb 28, 2014 sick [facility] Apr 20, 2014 Unknown [facility] May 28, 2014 Labs [facility] May 14, 2014 still not feeling better [facility] May 18, 2014 Problems Problem Type Condition ICD-9 Code Onset Dates Condition Status Problem Vitamin d deficiency 268.9 Active Problem HTN (hypertension), benign 401.1 Active Medications Medication Code System Code Instructions Start Date End Date Status Dosage Synthroid MEDISPAN [id number] 25 MCG Orally Once a day May 28, 2014 Active 1 tablet Social History Social History Element Qualifiers Date Reported Tobacco Use: . Are you a: never smoker May 18, 2014 Marital Status: . May 18, 2014 Do you drink alcohol? . 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
--- OUTSIDE RECORDS SUMMARY | 2018-05-18 20:39 | XMS REPORT ---
Author Author Miryam Bishop [facility] eClinical[employer] Address Unknown Phone Unavailable Care Team Providers Care Medical Office Receptionist Name Role Phone Miryam Bishop CP Unavailable Allergies, Adverse Reactions, Alerts Substance Reaction Event Type N.K.D.A. Info Not Available Non Drug Allergy Encounters Encounter Location Date Unknown [facility] Apr 21, 2014 ankle pain/eye [facility] September 22, 2013 Unknown [facility] Feb 28, 2014 sick [facility] Apr 20, 2014 Problems Problem Type Condition ICD-9 Code Onset Dates Condition Status Assessment HTN (Unspecified essential hypertension) 401.9 Active Assessment Skin tag 701.9 Active Assessment Left shoulder pain 719.41 Active Assessment Discoloration of skin of face 709.00 Active Social History Social History Element Qualifiers Date Reported Tobacco Use: . Are you a: never smoker Apr 20, 2014 Marital Status: . Apr 20, 2014 Do you drink alcohol? . 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
--- OUTSIDE RECORDS SUMMARY | 2018-05-18 20:40 | XMS REPORT | Summary of Care ---
Author Author [facility] Organization [facility] Address Unknown Phone Unavailable Encounter HQ Encntr_alias(FIN) [id number] Date(s): 02/13/16 - 03/13/16 [facility] [address] [place] [address]- Discharge Disposition: Home or Self Care Attending Physician: Josue Rodrigez MD Vital Signs No data available for this section Problem List Condition Effective Dates Status Health Status Informant Hypertension(Confirm Resolved ed) Allergies, Adverse Reactions, Alerts Substance Reaction Severity Status NKDA Active Medications No data available for this section Results No data available for this section Immunizations No data available for this section Procedures No data available for this section Social History Social History Type Response Smoking Status Never smoker; Exposure to Tobacco Smoke None; Cigarette Smoking Last 365 Days No; Reg Smoking Cessation Counseling No Assessment and Plan No data available for this section
--- OUTSIDE RECORDS SUMMARY | 2018-05-18 20:40 | XMS REPORT | Summary of Care ---
Author Author [facility] Organization [facility] Address Unknown Phone Unavailable Encounter HQ Encntr_alias(FIN) [id number] Date(s): 01/08/16 - 01/08/16 [facility] [address] [place] [address]- [phone] Discharge Disposition: Home or Self Care Attending [...]
--- OUTSIDE RECORDS SUMMARY | 2018-05-18 20:40 | XMS REPORT | Summary of Care ---
Author Author [facility] Organization [facility] Address Unknown Phone Unavailable Encounter HQ Benson_carolina(FIN) [id number] Date(s): 04/22/17 - 04/22/17 [facility] [address] [place] [address]- Attending Physician: Josue Rodrigez MD Referring Physician: Gely Talamantes MD Vital Signs No data available for this section Problem List Condition Effective Dates Status Health Status Informant Hypertension(Confirm Resolved ed) Breast Resolved cancer(Confirmed) Obesity(Confirmed) Active Allergies, Adverse Reactions, Alerts Substance Reaction Severity [...] Days No; Reg Smoking Cessation Counseling No entered on: 06/02/16 Assessment and Plan No data available for this section
--- OUTSIDE RECORDS SUMMARY | 2018-05-18 20:40 | XMS REPORT | Summary of Care ---
Author Author [facility] Organization [facility] Address Unknown Phone Unavailable Encounter MARK Hall(RAMIRO) [id number] Date(s): 03/25/17 - 03/26/17 [facility] [address] [place] [address]- [phone] Discharge Disposition: [facility] Left B4 Treatment Cmplt-MSE Cmplt Attending Physician: Virgen Watson MD Vital Signs Most recent to 1 2 oldest [Reference Range]: Height 157.48 cm (03/25/17 4:26 PM) Temperature Oral 98.5 DegF 97.8 DegF [96.4-99.1 DegF] (03/25/17 8:53 PM) (03/25/17 4:26 PM) Blood Pressure 137/70 mmHg 159/87 mmHg [90-140/60-90 mmHg] (03/25/17 8:53 PM) *HI* (03/25/17 4:26 PM) Respiratory Rate 18 BRMIN 18 BRMIN [14-20 BRMIN] (03/25/17 8:53 PM) (03/25/17 4:26 PM) Peripheral Pulse 75 bpm 60 bpm Rate [60-100 bpm] (03/25/17 8:53 PM) (03/25/17 4:26 PM) Weight 97.273 kg (03/25/17 4:26 PM) Body Mass Index 39.22 m2 (03/25/17 4:26 PM) Problem List Condition Effective Dates Status Health Status Informant Hypertension(Confirm Resolved ed) Breast Resolved cancer(Confirmed) Obesity(Confirmed) Active Allergies, Adverse Reactions, Alerts Substance Reaction Severity Status NKDA Active Medications Saline Flush 0.9% 10 mL, Route: IVP, Drug Form: INJ, Dosing Weight 97.273, kg, PRN, PRN Line Flush , Start date: 03/25/17 16:35:00 [employer], Duration: 30 day, Stop date: 04/24/17 16:34 :00 [employer] Notes: (Same as: BD Posiflush) Start Date: 03/25/17 Stop Date: 03/26/17 Status: Discontinued Results ELECTROLYTES Most recent to 1 oldest [Reference Range]: Sodium Lvl [135-145 141 mEq/L mEq/L] (03/25/17 6:06 PM) Potassium Lvl 4.4 mEq/L [3.5-5.1 mEq/L] (03/25/17 6:06 PM) Chloride Lvl [95-109 108 mEq/L mEq/L] (03/25/17 6:06 PM) CO2 [24-32 mEq/L] 29 mEq/L (03/25/17 6:06 PM) AGAP [10.0-20.0 8.4 mEq/L mEq/L] *LOW* (03/25/17 6:06 PM) CHEM PANEL Most recent to 1 oldest [Reference Range]: Creatinine Lvl 0.90 mg/dL [0.50-1.40 mg/dL] (03/25/17 6:06 PM) eGFR 77 mL/min/1.73m2 1 *NA* (03/25/17 6:06 PM) BUN [7-22 mg/dL] 13 mg/dL (03/25/17 6:06 PM) B/C Ratio [6-25] 14 (03/25/17 6:06 PM) Glucose Lvl [70-99 81 mg/dL mg/dL] (03/25/17 6:06 PM) Total Protein 7.9 g/dL [6.4-8.4 g/dL] (03/25/17 6:06 PM) Albumin Lvl [3.5-5.0 3.5 g/dL g/dL] (03/25/17 6:06 PM) Globulin [2.7-4.2 4.4 g/dL g/dL] *HI* (03/25/17 6:06 PM) A/G Ratio [0.7-1.6] 0.8 (03/25/17 6:06 PM) Calcium Lvl 8.6 mg/dL [8.5-10.5 mg/dL] (03/25/17 6:06 PM) Magnesium Lvl 2.1 mg/dL [1.8-2.4 mg/dL] (03/25/17 6:06 PM) ALT [0-65 unit/L] 22 unit/L (03/25/17 6:06 PM) AST [0-37 unit/L] 15 unit/L (03/25/17 6:06 PM) Alk Phos [39-136 101 unit/L unit/L] (03/25/17 6:06 PM) Bili Total [0.2-1.3 0.3 mg/dL mg/dL] (03/25/17 6:06 PM) 1Result Comment: The eGFR is calculated [...] be mul tiplied by the estimated BMI. CARDIAC ENZYMES Most recent to 1 oldest [Reference Range]: Total CK [12-191 132 unit/L unit/L] (03/25/17 6:06 PM) CK MB [0.5-3.6 1.1 ng/mL ng/mL] (03/25/17 6:06 PM) CK MB Index 0.8 [0.0-2.5] (03/25/17 6:06 PM) Troponin-I <0.02 ng/mL [0.00-0.40 ng/mL] (03/25/17 6:06 PM) HEMATOLOGY Most recent to 1 oldest [Reference Range]: WBC [3.7-10.4 K/CMM] 4.2 K/CMM (03/25/17 6:06 PM) RBC [4.20-5.40 4.29 M/CMM M/CMM] (03/25/17 6:06 PM) Hgb [12.0-16.0 g/dL] 12.4 g/dL (03/25/17 6:06 PM) Hct [36.0-48.0 %] 37.7 % (03/25/17 6:06 PM) MCV [80.0-98.0 fL] 88.0 fL (03/25/17 6:06 PM) MCH [27.0-31.0 pg] 28.8 pg (03/25/17 6:06 PM) MCHC [32.0-36.0 32.8 g/dL g/dL] (03/25/17 6:06 PM) RDW [11.5-14.5 %] 13.8 % (03/25/17 6:06 PM) Platelet [133-450 169 K/CMM K/CMM] (03/25/17 6:06 PM) MPV [7.4-10.4 fL] 10.1 fL (03/25/17 6:06 PM) Segs [45.0-75.0 %] 47.6 % (03/25/17 6:06 PM) Lymphocytes 35.4 % [20.0-40.0 %] (03/25/17 6:06 PM) Monocytes [2.0-12.0 8.6 % %] (03/25/17 6:06 PM) Eosinophils [0.0-4.0 7.6 % %] *HI* (03/25/17 6:06 PM) Basophils [0.0-1.0 0.8 % %] (03/25/17 6:06 PM) Segs-Bands # 2.0 K/CMM [1.5-8.1 K/CMM] (03/25/17 6:06 PM) Lymphocytes # 1.5 K/CMM [1.0-5.5 K/CMM] (03/25/17 6:06 PM) Monocytes # [0.0-0.8 0.4 K/CMM K/CMM] (03/25/17 6:06 PM) Eosinophils # 0.3 K/CMM [0.0-0.5 K/CMM] (03/25/17 6:06 PM) Immunizations No data available for this section Procedures No data available for this section Social History Social History Type Response Smoking Status Never smoker; Exposure to Tobacco Smoke None; Cigarette Smoking Last 365 Days No; Reg Smoking Cessation Counseling No Assessment and Plan No data available for this section
--- OUTSIDE RECORDS SUMMARY | 2018-05-18 20:40 | XMS REPORT | Summary of Care ---
Author Author [facility] Organization [facility] Address Unknown Phone Unavailable Encounter HQ Benson_carolina(FIN) [id number] Date(s): 06/30/17 - 06/30/17 [facility] [address] [place] [address]- Encounter Diagnosis Pain in left lower leg (Final) - 07/06/17 Discharge Disposition: Home or Self Care Attending Physician: Dori Escobar DO Referring Physician: Dori Escobar DO Vital Signs No data available for this [...]
--- OUTSIDE RECORDS SUMMARY | 2018-05-18 20:40 | XMS REPORT | Summary of Care ---
Author Author [facility] Organization [facility] Address Unknown Phone Unavailable Encounter HQ Encntr_alias(FIN) [id number] Date(s): 04/09/16 - 04/09/16 [facility] [address] [place] [address]- Discharge Disposition: Home or Self Care Attending [...]
--- OUTSIDE RECORDS SUMMARY | 2018-05-18 20:40 | XMS REPORT | Summary of Care ---
Author Author [facility] Organization [facility] Address Unknown Phone Unavailable Encounter HQ Isabel(RAMIRO) [id number] Date(s): 06/26/16 - 06/27/16 [facility] [address] [place] [address]- Discharge Diagnosis: Fall on same level, unspecified, initial encounter Discharge Disposition: Home or Self Care Attending Physician: Robert Khan MD Vital Signs 1 2 3 Most recent to oldest [Reference Range]: 98.3 DegF (06/27/16 2:28 AM) 98.2 DegF (06/26/16 9:27 PM) Temperature Oral [96.4-99.1 DegF] 112/49 mmHg (06/27/16 2:28 AM) 129/78 mmHg (06/27/16 1:23 AM) 135/85 mmHg (06/26/16 9:27 PM) Blood Pressure [90-140/60-90 mmHg] 17 BRMIN (06/27/16 2:28 AM) 19 BRMIN (06/27/16 1:23 AM) 18 BRMIN (06/26/16 9:27 PM) Respiratory Rate [14-20 BRMIN] 81 bpm (06/27/16 2:28 AM) 88 bpm (06/27/16 1:23 AM) 92 bpm (06/26/16 9:27 PM) Peripheral Pulse Rate [60-100 bpm] 90.909 kg (06/26/16 9:27 PM) Weight Problem List Condition Effective Dates Status Health Status Informant Hypertension(Confirm Resolved ed) Breast Resolved cancer(Confirmed) Obesity(Confirmed) Active Allergies, Adverse Reactions, Alerts Substance Reaction Severity Status NKDA Active Medications Motrin 600 mg oral tablet 600 mg=1 tab, PO, Q6H, PRN Pain, take with food, # 30 tab, 0 Refill(s) Start Date: 06/27/16 Stop Date: 07/26/16 Status: Ordered Delta 5/325 oral tablet 1 tab, Route: PO, Drug Form: TAB, Dosing Weight 90.909, kg, ONCE, STAT, Start da te: 06/27/16 0:55:00 CDT, Stop date: 06/27/16 0:55:00 CDT Notes: (Same as: Delta 325/5) Do not exceed 4gm/day of acetaminophen. Start Date: 06/27/16 Stop Date: 06/27/16 Status: Completed Saline Flush 0.9% 10 mL, Route: IVP, Drug Form: INJ, Dosing Weight 90.909, kg, PRN, PRN Line Flush , Start date: 06/26/16 21:30:00 CDT, Duration: 30 day, Stop date: 07/26/16 21:29 :00 CDT Notes: (Same as: BD Posiflush) Start Date: 06/26/16 Stop Date: 06/27/16 Status: Discontinued Results No data available for this section Immunizations No data available for this section Procedures No data available for this section Social History Social History Type Response Smoking Status Never smoker; Exposure to Tobacco Smoke None; Cigarette Smoking Last 365 Days No; Reg Smoking Cessation Counseling No Assessment and Plan No data available for this section
--- OUTSIDE RECORDS SUMMARY | 2018-05-18 20:40 | XMS REPORT | Summary of Care ---
Author Author [facility] Organization [facility] Address Unknown Phone Unavailable Encounter HQ Encntr_alias(FIN) [id number] Date(s): 01/14/16 - 02/12/16 [facility] [address] [place] [address]- Discharge Disposition: Home or Self Care Attending [...]
--- OUTSIDE RECORDS SUMMARY | 2018-05-18 20:40 | XMS REPORT | Summary of Care ---
Author Author DENISE BLACK N.P. Unknown Address [facility] Phone Unavailable Care Team Providers Care Bowl Attendant Name Role Phone VIJAYA RAVI M.D. Unavailable Unavailable LEANDRA MCKEON M.D. Unavailable Unavailable DAVE ROSADO DO Unavailable Unavailable LINDA VILLASENOR SDLEANDRA Unavailable Unavailable Unavailable Unavailable Functional Status Name Dates Details Functional status health issues are not documented Status: Name Dates Details Cognitive status health issues are not documented Status: Problems Name Dates Details Hypertension (401.9, I10) Status: Active Pain of left lower extremity (729.5, M79.605) Status: Active Pain of right lower extremity (729.5, M79.604) Status: Active Medications Name Dates Details Diovan 160 MG Oral Tablet TAKE 1 TABLET NEEDED. Quantity: 90 * Start : 25-Jun-2015 Active Metoprolol Succinate ER 25 MG Oral Tablet Extended Release 24 Hour TAKE 1 TABLET BY MOUTH EVERY DAY * Quantity: 90 Refills: 0 VIJAYA RAVI M.D. * Start : 30-Nov-2017 Active Aspirin Low Dose 81 MG TABS TAKE 1 TABLET DAILY. * Refills: 0 * Start : 15-Aug-2015 Active Anastrozole 1 MG Oral Tablet TAKE 1 TABLET DAILY. * Refills: 0 * Start : 21-Jan-2017 Active Allergies and Adverse Reactions Name Dates Details No Known Drug Allergies (Allergy) Status: Active Past Medical History Name Dates Details Hypertension (401.9, I10) Status: Active History of anemia (V12.3, Z86.2) Status: Resolved History of malignant neoplasm of breast (V10.3, Z85.3) Status: Resolved History of thyroid disease (V12.29, Z86.39) Status: Resolved Procedures Procedure Dates Details History of Laparosc For Obesity W/ Gastric Bypass, Small Bowel Reconstr Completed History of Breast surgery Completed Immunization Name Dates Details Immunizations not documented Family History Name Dates Details Family history of hypertension (V17.49, Z82.49) Status: Active Family history of diabetes mellitus (V18.0, Z83.3) Status: Active Name Dates Details Family history of hypertension (V17.49, Z82.49) Status: Active Family history of diabetes mellitus (V18.0, Z83.3) Status: Active Social History Name Dates Details - Status: Name Dates Details Never smoker Vital Signs Date Test Result Details No Known Vitals to report Results Date Description Value Details Results not documented Plan of Care Name Dates Details Planned Observations Planned Goals not documented Planned Encounters Appointment; LEANDRA MCKEON M.D. On: 26-Apr-2018 11:00 Interventions Provided Instructions* Patient Specific Education Given; Done: 26 Apr 2018 Plan* I evaluated Ms. Haleigh shay for c/o Instructions Name Dates Details Instructions not documented Encounters Appointment; VIJAYA RAVI M.D. Encounter Diagnosis: Problem not documented On: 26-Aug-2016 15:00 Appointment; VIJAYA RAVI M.D. Encounter Diagnosis: Problem not documented On: 06-Jan-2017 13:00 Appointment; VIJAYA RAVI M.D. Encounter Diagnosis: Problem not documented On: 21-Jan-2017 15:20 Appointment; SE, ECHO Encounter Diagnosis: Problem not documented On: 11-Feb-2017 14:00 Appointment; VIJAYA RAVI M.D. Encounter Diagnosis: Problem not documented On: 11-Feb-2017 14:50 Appointment; SE, ECHO Encounter Diagnosis: Problem not documented On: 25-Feb-2017 14:30 Appointment; VIJAYA RAVI M.D. Encounter Diagnosis: Problem not documented On: 25-Feb-2017 14:50 Appointment; VIJAYA RAVI M.D. Encounter Diagnosis: Problem not documented On: 31-Mar-2017 14:40 Appointment; LEANDRA MCKEON M.D. Encounter Diagnosis: Problem not documented On: 08-Mar-2018 8:15 Appointment; VASCULAR, SE Encounter Diagnosis: Problem not documented On: 11-Apr-2018 10:00 Appointment; LEANDRA MCKEON M.D. Encounter Diagnosis: Problem not documented On: 26-Apr-2018 11:00
--- OUTSIDE RECORDS SUMMARY | 2018-05-18 20:40 | XMS REPORT | Summary of Care ---
Author Author [facility] Organization [facility] Address Unknown Phone Unavailable Encounter HQ Encntr_alias(FIN) [id number] Date(s): 08/09/15 - 08/09/15 [facility] [address] [place] [address]- Discharge Disposition: Home Attending Physician: Dallas Mckeon MD Referring Physician: Mary Sloan MD Vital Signs No data available for [...]
--- OUTSIDE RECORDS SUMMARY | 2018-05-18 20:40 | XMS REPORT | Summary of Care ---
Author Author [facility] Organization [facility] Address Unknown Phone Unavailable Encounter HQ Encntr_alias(FIN) [id number] Date(s): 10/22/16 - 10/22/16 [facility] [address] [place] [address]- [phone] Discharge Disposition: Home or Self Care Attending [...]
--- OUTSIDE RECORDS SUMMARY | 2018-05-18 20:40 | XMS REPORT | Summary of Care ---
Author Author [facility] Organization [facility] Address Unknown Phone Unavailable Encounter HQ Encntr_alimk(FIN) [id number] Date(s): 09/13/15 - 09/13/15 [facility] [address] [place] [address]- Discharge Disposition: Home Attending Physician: Dori Escobar DO Referring Physician: [...]
[2018-05-18] MEDS ORDERED: ALBUTEROL/IPRATROPIUM 3 ML NEB NEB ONE (21:30)
--- NOTE | 2018-05-18 21:49 | Diagnostic Imaging Report ---
EXAMINATION: CXR 2 VIEW - HOPD INDICATION: Cough and fever ^[id number] ^[id number] COMPARISON: None FINDINGS: PA and lateral views TUBES and LINES: None. LUNGS: Lungs are well inflated. There is no evidence of pneumonia or pulmonary edema. PLEURA: No pleural effusion or pneumothorax. HEART AND MEDIASTINUM: The cardiomediastinal silhouette is unremarkable. BONES AND SOFT TISSUES: No acute osseous lesion. Soft tissues are unremarkable. UPPER ABDOMEN: No free air under the diaphragm. Percutaneous gastrostomy tube in place. IMPRESSION: No acute thoracic abnormality. Signed by: Dr. Solo Ambrose MD on 05/18/2018 9:45 PM
[2018-05-19 00:50] VITALS: BP 175/85
== END 2018-05-18 22:25 | disposition home or self-care (01) ==
LOC: FSED 20:34
DX: J11.1 Influenza due to unidentified influenza virus with other respiratory manifestations (principal); R05 Cough
CPT/HCPCS: 71046

== ENCOUNTER 2024-02-12 17:33 | Emergency (ER) | payer MEDICARE ==
[~2024-02-12] VITALS: Ht 157.5 cm; Wt 92.1 kg
[2024-02-12] MEDS: IBUPROFEN 400 MG TAB PO ONE (19:13)
[2024-02-12 19:14] VITALS: PULSE 71; RESP 18; TEMP 98.9; O2SAT 98
== END 2024-02-12 20:01 | disposition home or self-care (01) ==
LOC: FSED 17:44
DX: S60.211A Contusion of right wrist, initial encounter (principal); M25.532 Pain in left wrist; W01.0XXA Fall on same level from slipping, tripping and stumbling without subsequent striking against object, initial encounter; Y93.01 Activity, walking, marching and hiking; Y92.89 Other specified places as the place of occurrence of the external cause; I10 Essential (primary) hypertension; Z85.3 Personal history of malignant neoplasm of breast
CPT/HCPCS: 99283